=== PATIENT | female | born 1955 | race Caucasian/White ===

== ENCOUNTER 2016-04-28 19:38 | Emergency (ER) | payer OTHER ==
[~2016-04-28] VITALS: Ht 157.5 cm; Wt 49.9 kg
[~2016-04-28 19:38] MED LIST: ATOR40TA49 PO; HYDR-3535 PO; LISI-363 PO; MELO15 PO; MORP1CAP80 PO; PROP1TAB66 PO; RANI150 PO; ROBA750T3 PO; SYNT75TA PO; VENL75 PO
[2016-04-28 19:48] VITALS: PULSE 77; RESP 18; TEMP 99.8; O2SAT 96
[2016-04-28 20:52] VITALS: BP 205/103; PULSE 73; RESP 16; TEMP 99.8; O2SAT 97
[2016-04-28 21:50] VITALS: RESP 18; O2SAT 97
[2016-04-28] MEDS ORDERED: methylPREDNISolone SOD SUCC 125 MG/2 ML VIAL IVP ONE (22:15)
[2016-04-28] MEDS: RESP: ALBUTEROL 2.5 MG/IPRATROPIUM 0.5 MG NEB (SCH) INH (22:15)
--- NOTE | 2016-04-28 22:28 | PD ---
HPI Chief Complaint: Respiratory Symptoms Time Seen by Provider: 22:01 Travel History International Travel<30 days: No Contact w/Intl Traveler<30days: No Traveled to known affect area: No History of Present Illness HPI 60-year-old female with history of COPD presents for evaluation of cough, dyspnea, weight loss. Symptoms have been going on for last month. Cough is sometimes productive of greenish sputum. She has had subjective fevers and chills. She has been trying Mucinex without relief of symptoms. No hemoptysis. No history of DVT or PE. Chest pain with coughing. Dyspnea is at rest, worse with exertion. PFSH Past Medical History Arthritis: Yes Asthma: No Autoimmune Disease: No Blood Disorders: No Anxiety: Yes Depression: No Heart Rhythm Problems: No Cancer: No Cardiovascular Problems: Yes (HTN) High Cholesterol: Yes Chemotherapy: No Chest Pain: Yes Congestive Heart Failure: No COPD: No Cerebrovascular Accident: No Diabetes: No Diminished Hearing: No Diverticulitis: Yes Endocrine: No Gastrointestinal Disorders: Yes (GERD) GERD: Yes Glaucoma: No Genitourinary: No Headaches: Yes Hepatitis: No Hiatal Hernia: No Hypertension: Yes Immune Disorder: No Kidney Stones: No Musculoskeletal: Yes (CHRONIC BACK AND LEG PAIN) Neurologic: Yes (HEADACHES) Psychiatric: No Reproductive: No Respiratory: Yes (COUGHING) Immunizations Current: Yes Myocardial Infarction: No Radiation Therapy: No Renal Failure: No Seizures: No Sickle Cell Disease: No Sleep Apnea: No Thyroid Disease: Yes (HYPOTHYROIDISM) Triglycerides - High: Yes Ulcer: No Past Surgical History Abdominal Surgery: Yes (ADHESIONLYSIS) AICD: No Appendectomy: Yes Cardiac Surgery: No Cholecystectomy: Yes Ear Surgery: No Endocrine Surgery: No Eye Surgery: No Genitourinary Surgery: No Gynecologic Surgery: Yes (HYSTERECTOMY) Hysterectomy: Yes Joint Replacement: No Oral Surgery: No Pacemaker: No Thoracic Surgery: Yes (GALL BLADDER REMOVED 1995) Other Surgery: Yes (ADHESIONS on liver and stomach) Social History Alcohol Use: No Tobacco Use: Yes (1PPD) Substance Use: No Allergies-Medications (Allergen,Severity, Reaction): Coded Allergies: Seafood (Verified Allergy, Severe, Anaphylaxis, 04/28/16) Erythromycin (Verified Allergy, Intermediate, "facial swelling", 04/28/16) Penicillin (Verified Allergy, Intermediate, "facial swelling", 04/28/16) Dilaudid (Verified Adverse Reaction, Severe, Nausea/Vomiting, 04/28/16) headache, diarrhea Ibuprofen (Verified Adverse Reaction, Intermediate, NAUSEA, facial swelling, 04/28/16) Reported Meds & Prescriptions Reported Meds & Active Scripts Active Inderal (Propranolol HCl) 10 Mg Tab 10 Mg PO BID Zantac 150 Mg Tab (Ranitidine HCl) 150 Mg Tab 150 Mg PO BID Lisinopril 20 mg (Lisinopril) 20 Mg Tab 20 Mg PO BID Lipitor 40 Mg Tab (Atorvastatin Calcium) 40 Mg Tab 40 Mg PO DAILY Effexor 75 Mg Tab (Venlafaxine HCl) 75 Mg Tab 50 Mg PO BID Synthroid 75 mcg (Levothyroxine Sodium) 75 Mcg Tab 75 Mcg PO DAILY Reported Mobic 15 Mg Tab (Meloxicam) 15 Mg Tab 15 Mg PO BID Embeda 30-1.2 mg (Morphine-Naltrexone) 1 Cap Cap 1 Cap PO DAILY Lortab 10 mg/325 mg (Hydrocodone/Acetaminophen 10 mg/325 mg) 1 Tab 1 Tab PO Q6HR PRN Review of Systems Except as stated in HPI: all other systems reviewed are Neg Physical Exam Narrative GENERAL: Well-developed, thin, comfortable, no acute distress. SKIN: Warm and dry. No rash. HEAD: Atraumatic. Normocephalic. EYES: Pupils equal and round. No scleral icterus. No injection or drainage. ENT: Mucous membranes pink and moist. NECK: Trachea midline. No JVD. No nuchal rigidity. CARDIOVASCULAR: Regular rate and rhythm. RESPIRATORY: No accessory muscle use. Slight end expiratory wheezes bilaterally. No rales or rhonchi. Poor air movement bilaterally. Breath sounds equal bilaterally. GASTROINTESTINAL: Abdomen soft, non-tender, nondistended. Hepatic and splenic margins not palpable. MUSCULOSKELETAL: No obvious deformities. No clubbing. No cyanosis. No edema. Bilateral calves are supple, nontender. NEUROLOGICAL: Awake and alert. No obvious cranial nerve deficits. Motor grossly within normal limits. Normal speech. PSYCHIATRIC: Appropriate mood and affect; insight and judgment normal. Data Data Last Documented VS Vital Signs Date Time Temp Pulse Resp B/P Pulse Ox O2 Delivery O2 Flow Rate FiO2 04/28/16 21:59 77 18 98 Room Air 04/28/16 20:52 99.8 205/103 Orders Complete Blood Count With Diff (04/28/16 22:01) Comprehensive Metabolic Panel (04/28/16 22:01) B-Type Natriuretic Peptide (04/28/16 22:01) Act Partial Throm Time (Ptt) (04/28/16 22:01) Prothrombin Time / Inr (Pt) (04/28/16 22:01) Ckmb (Isoenzyme) Profile (04/28/16 22:01) Troponin I (04/28/16 22:01) Influenzae A/B Antigen (04/28/16 22:01) Blood Culture (04/28/16 22:) Iv Access Insert/Monitor (04/28/16 22:) Electrocardiogram (04/28/16 22:) Ecg Monitoring (04/28/16 22:) Oximetry (04/28/16 22:) Oxygen Administration (04/28/16 22:) Chest, Single Ap (04/28/16 22:01) Ct Pulmonary Angiogram (04/28/16 22:01) Sodium Chloride 0.9% Flush (Ns Flush) (04/28/16 22:15) Methylprednisolone So Succ Inj (Solumedr (04/28/16 22:15) Albuterol-Ipratropium Neb (Duoneb Neb) (04/28/16 22:15) Potassium Cl 40 Meq/30 Ml Liq (Kcl 40 Me (04/28/16 23:15) Acetaminophen (Tylenol) (04/28/16 23:15) Metoclopramide Inj (Reglan Inj) (04/28/16 23:15) Iohexol 350 Inj (Omnipaque 350 Inj) (04/28/16 23:11) Labs Laboratory Tests Test 04/28/16 22:10 White Blood Count 9.4 TH/MM3 Red Blood Count 4.70 MIL/MM3 Hemoglobin 15.3 GM/DL Hematocrit 44.2 % Mean Corpuscular Volume 93.9 FL Mean Corpuscular Hemoglobin 32.5 PG Mean Corpuscular Hemoglobin 34.7 % Concent Red Cell Distribution Width 12.9 % Platelet Count 307 TH/MM3 Mean Platelet Volume 8.2 FL Neutrophils (%) (Auto) 60.7 % Lymphocytes (%) (Auto) 31.3 % Monocytes (%) (Auto) 5.9 % Eosinophils (%) (Auto) 1.7 % Basophils (%) (Auto) 0.4 % Neutrophils # (Auto) 5.7 TH/MM3 Lymphocytes # (Auto) 2.9 TH/MM3 Monocytes # (Auto) 0.6 TH/MM3 Eosinophils # (Auto) 0.2 TH/MM3 Basophils # (Auto) 0.0 TH/MM3 CBC Comment DIFF FINAL Differential Comment Prothrombin Time 10.1 SEC Prothromb Time International 0.9 RATIO Ratio Activated Partial 27.1 SEC Thromboplast Time Sodium Level 134 MEQ/L Potassium Level 3.2 MEQ/L Chloride Level 96 MEQ/L Carbon Dioxide Level 32.4 MEQ/L Anion Gap 6 MEQ/L Blood Urea Nitrogen 6 MG/DL Creatinine 0.52 MG/DL Estimat Glomerular Filtration 121 ML/MIN Rate Random Glucose 93 MG/DL Calcium Level 9.7 MG/DL Total Bilirubin 0.4 MG/DL Aspartate Amino Transf 10 U/L (AST/SGOT) Alanine Aminotransferase 20 U/L (ALT/SGPT) Alkaline Phosphatase 91 U/L Total Creatine Kinase 78 U/L Troponin I LESS THAN 0.02 NG/ML B-Type Natriuretic Peptide 11 PG/ML Total Protein 7.2 GM/DL Albumin 4.0 GM/DL [facility] Medical Decision Making Medical Screen Exam Complete: Yes Emergency Medical Condition: Yes Medical Record Reviewed: Yes Interpretation(s) EKG: Sinus, rate 66, normal axis, normal intervals, no acute ischemic abnormality. Differential Diagnosis COPD exacerbation, pneumonia, influenza, PE, ACS, pneumothorax, bronchitis Narrative Course Vital signs show heart rate 73, blood pressure 205/103, pulse ox 97% on room air , oral temp of 99.8F. CBC is unremarkable. CMP is remarkable for potassium 3.2, otherwise unremarkable. Potassium replaced orally. BNP is 11. Cardiac enzymes are negative. Influenza is negative. Chest x-ray shows no acute disease. CT pulmonary angiogram: CONCLUSION: No evidence of pulmonary embolism Small right upper lobe nodular lung density should be followed. The patient was made aware of all findings and was given a copy of the CT pulmonary angiogram report. She reports improvement in respiratory symptoms after 3 DuoNeb treatments and IV Solu-Medrol. Wheezes have resolved. After receiving treatments patient was complaining of a headache. She was given Tylenol and Reglan. I do not believe she has meningitis or encephalitis. Headache is slight. I do not believe that this is a subarachnoid hemorrhage. I believe that the patient is suffering from COPD exacerbation/bronchitis. She is resting comfortably and speaking in full sentences. No respiratory distress. No retractions. She is stable for discharge home with outpatient follow-up with her primary care physician this week. Given duration of cough, I will start her on Levaquin. She was informed on when to return to the emergency department. She verbalizes understanding and agreement with plan. Diagnosis Primary Impression: Bronchitis Additional Impression: Lung nodule Referrals: Primary Care Physician 3 days Additional Instructions: Follow-up with your primary care physician this week. Take medications as prescribed. Return to the emergency room if worsening symptoms or any other concerns. Scripts Albuterol 18 GM Inh (Ventolin Hfa 18 GM Inh)90 Mcg/Act Aer1 Puff INH Q4H PRN ( SHORTNESS OF BREATH) #1 INHALER Ref 0 Prov:Hilario Frank MD 04/28/16 Prednisone 50 Mg Tab50 Mg PO DAILY 5 Days Ref 0 Prov:Hilario Frank MD 04/28/16 Levofloxacin (Levaquin)500 Mg [id number] Mg PO DAILY 7 Days Ref 0 Prov:Hilario Frank MD 04/28/16 Disposition: 01 DISCHARGE HOME Condition: Stable Hilario Frank MD Apr 28, 2016 22:28
[2016-04-28 22:36] LABS: AUTOMATED NEUTROPHIL # 5.7 TH/MM3 (1.8-7.7); BASOPHIL % 0.4 % (0.0-2.0); EOSINOPHIL # 0.2 TH/MM3 (0-0.4); EOSINOPHIL % 1.7 % (0.0-4.0); HEMATOCRIT 44.2 % (35.0-46.0); HEMO FLAGS DIFF FINAL; LYMPH % 31.3 % (9.0-44.0); LYMPHOCYTE # 2.9 TH/MM3 (1.0-4.8); MEAN CELL VOLUME 93.9 FL (80.0-100.0); MEAN CORPUSCULAR HEMOGLOBIN 32.5 PG (27.0-34.0); MEAN CORPUSCULAR HGB CONC 34.7 % (32.0-36.0); MONO % 5.9 % (0.0-8.0); NEUT % 60.7 % (16.0-70.0); PLATELET COUNT 307 TH/MM3 (150-450); RED CELL DISTRIBUTION WIDTH 12.9 % (11.6-17.2); WHITE BLOOD COUNT 9.4 TH/MM3 (4.0-11.0)
[2016-04-28] MEDS: SODIUM CHLORIDE 0.9% FLUSH 5 ML FLUSH IVF PRN ×2 (22:38→23:47)
[2016-04-28 22:45] LABS: CHLORIDE 96 MEQ/L (98-107); POTASSIUM 3.2 MEQ/L (3.5-5.1); SODIUM (NA) 134 MEQ/L (136-145)
[2016-04-28 22:49] LABS: ANION GAP 6 MEQ/L (5-15); BICARBONATE 32.4 MEQ/L (21.0-32.0); BLOOD UREA NITROGEN 6 MG/DL (7-18)
[2016-04-28 22:51] LABS: APTT (PATIENT) 27.1 SEC (24.3-30.1); INTERNATIONAL NORMALIZED RATIO 0.9 RATIO; PROTHROMBIN TIME - PATIENT 10.1 SEC (9.8-11.6)
[2016-04-28 22:52] LABS: ALT (GPT) 20 U/L (10-53); AST (GOT) 10 U/L (15-37); GLOMERULAR FILTRATION RATE 121 ML/MIN (>89)
[2016-04-28 22:54] LABS: TOTAL BILIRUBIN ADULT 0.4 MG/DL (0.2-1.0)
[2016-04-28 22:55] LABS: ALKALINE PHOSPHATASE 91 U/L (45-117)
--- NOTE | 2016-04-28 22:56 | RADHPO ---
EXAM DATE/TIME: 04/28/2016 22:51 [facility] COMPARISON: CHEST SINGLE AP, July 03, 2013, 21:57. INDICATIONS : Shortness of breath for 1 month MEDICAL HISTORY : None. SURGICAL HISTORY : None. ENCOUNTER: Initial ACUITY: 1 month PAIN SCORE: 3/10 LOCATION: Center of chest FINDINGS: A single view of the chest demonstrates the lungs to be symmetrically aerated without evidence of mas s, infiltrate or effusion. The cardiomediastinal contours are unremarkable. Osseous structures are intact. CONCLUSION: No acute disease. Shaka Henning MD on April 28, 2016 at 22:55 Board Certified Radiologist. This report was verified electronically.
[2016-04-28 22:58] LABS: CREATINE KINASE 78 U/L (26-192)
[2016-04-28] MEDS ORDERED: IOHEXOL 350 MG/ML 10 ML VIAL (for RAD DIAG) IV ONE (23:11)
[2016-04-28] MEDS ORDERED: POTASSIUM CL 40 MEQ/30 ML LIQ UDC PO ONE (23:15)
[2016-04-28] MEDS ORDERED: METOCLOPRAMIDE HCL 10 MG/2 ML VIAL IV PUSH ONE (23:15)
[2016-04-28] MEDS ORDERED: ACETAMINOPHEN 325 MG TAB PO ONE (23:15)
--- NOTE | 2016-04-28 23:45 | RADHPO ---
EXAM DATE/TIME: 04/28/2016 23:08 [facility] COMPARISON: No previous studies available for comparison. INDICATIONS : Cold symptoms with shortness of breath and weakness. IV CONTRAST: 60 cc Omnipaque 350 (iohexol) IV RADIATION DOSE: 6.25 CTDIvol (mGy) MEDICAL HISTORY : Hypertension. SURGICAL HISTORY : None. ENCOUNTER: Initial ACUITY: 2 weeks PAIN SCALE: 0/10 LOCATION: chest TECHNIQUE: Volumetric scanning of the chest was performed using a pulmonary embolism protocol MIP images were re constructed. Using automated exposure control and adjustment of the mA and/or kV according to patien t size, radiation dose was kept as low as reasonably achievable to obtain optimal diagnostic quality images. FINDINGS: PULMONARY ARTERIES: No filling defects are seen in the pulmonary arteries through the segmental level. LUNGS: There is a slightly less than 1 cm sub-solid nodular density in the lateral subpleural region of the right upper lobe. PLEURAE: There is no pleural thickening or pleural effusion. MEDIASTINUM: There is good visualization of the great vessels of the middle mediastinum. Incidental origin of the left vertebral artery from the aortic arch. No evidence of mediastinal or hilar adenopathy/mass. MUSCULOSKELETAL: Within normal limits for patient age. MISCELLANEOUS: The visualized upper abdominal organs demonstrate no acute abnormality. CONCLUSION: No evidence of pulmonary embolism Small right upper lobe nodular lung density should be followed. Rico Finch MD on April 28, 2016 at 23:37 Board Certified Radiologist. This report was verified electronically.
[2016-04-28] MEDS ORDERED: LEVA500T PO (23:55)
[2016-04-28] MEDS ORDERED: PRED50 PO (23:55)
[2016-04-28] MEDS ORDERED: VENTAER INH (23:55)
[2016-04-29 00:05] VITALS: BP 152/82; PULSE 88; RESP 18; O2SAT 95
[2016-04-29] MEDS ORDERED: LEVOFLOXACIN 500 MG TAB PO ONE (00:15)
[2016-04-29] MEDS ORDERED: ALBUAER3 INH (03:27)
[2016-04-29] MEDS ORDERED: LISI-515 PO (03:27)
[2016-04-29] MEDS ORDERED: HYDR-3583 PO (03:27)
[2016-04-29] MEDS ORDERED: VENL75TA PO (03:27)
[2016-04-29] MEDS ORDERED: RANI150T PO (03:27)
[2016-04-29] MEDS ORDERED: LOVA10TA PO (03:27)
[2016-04-29] MEDS ORDERED: LYRI50CA PO (03:27)
[2016-04-29] MEDS ORDERED: BACL10TA PO (03:27)
[2016-04-29] MEDS ORDERED: METO10TA PO ×2 (03:27)
[2016-04-29] MEDS ORDERED: MOBI15TA PO (03:27)
[2016-04-29] MEDS ORDERED: VITA500T PO (03:27)
[2016-04-29] MEDS ORDERED: LEVO75TA3 PO (03:27)
[2016-04-29] MEDS ORDERED: PROP10TA6 PO (03:27)
[2016-04-29] MEDS ORDERED: VENL100T PO (03:27)
[2016-04-29] MEDS ORDERED: LORA1TAB12 PO (03:27)
[2016-04-29] MEDS ORDERED: POTA-163 PO (03:27)
[2016-04-29] MEDS ORDERED: CENTTAB PO (03:27)
[2016-04-29] MEDS ORDERED: LEVOFLOXACIN 500 MG TAB PO SCH (09:00)
--- NOTE | 2016-04-29 21:03 | EKG ---
Date Performed: 04/28/2016 Time Performed: 22:42:48 PTAGE: 60 years EKG: Sinus rhythm . Normal ECG PREVIOUS TRACING : 08/15/2013 20.16 DOCTOR: Blaze Rock Interpretating Date/Time 04/29/2016 21:00:47
== END 2016-04-29 00:47 | disposition home or self-care (01) ==
LOC: PHED 19:38
DX: J40 Bronchitis, not specified as acute or chronic (principal); R91.1 Solitary pulmonary nodule; I10 Essential (primary) hypertension; E78.00 Pure hypercholesterolemia, unspecified; E03.9 Hypothyroidism, unspecified; F17.210 Nicotine dependence, cigarettes, uncomplicated
CPT/HCPCS: 71010; 71275; 80053; 82550; 83880; 84484; 85025; 85610; 85730; 87040; 87804; 93005; 94640; 94664; 96374; 96375; 99285; J2765; J2930; Q9967

== ENCOUNTER 2016-09-06 20:31 | Emergency (ER) | payer OTHER ==
[~2016-09-06] VITALS: Ht 157.5 cm; Wt 48.1 kg
[~2016-09-06 20:31] MED LIST changes: +ALBUAER3 INH; -ATOR40TA49 PO; +BACL10TA PO; +CENTTAB PO; -HYDR-3535 PO; +HYDR-3583 PO; +LEVA500T PO; +LEVO75TA3 PO; -LISI-363 PO; +LISI-515 PO; +LORA1TAB12 PO; +LOVA10TA PO; +LYRI50CA PO; -MELO15 PO; +METO10TA PO; +MOBI15TA PO; -MORP1CAP80 PO; +POTA-163 PO; +PRED50 PO; +PROP10TA6 PO; -PROP1TAB66 PO; -RANI150 PO; +RANI150T PO; -ROBA750T3 PO; -SYNT75TA PO; +VENL100T PO; -VENL75 PO; +VENL75TA PO; +VITA500T PO
[2016-09-06 20:40] VITALS: BP 189/106; PULSE 82; RESP 12; TEMP 98.7; O2SAT 96
[2016-09-06] MEDS ORDERED: ROBA750T PO (21:03)
[2016-09-06] MEDS ORDERED: OMEP40CA2 PO (21:03)
[2016-09-06] MEDS ORDERED: LYRI75CA PO (21:03)
[2016-09-06] MEDS ORDERED: ALBUAER3 INH (21:03)
[2016-09-06] MEDS ORDERED: REGL10TA5 PO (21:03)
[2016-09-06] MEDS ORDERED: EFFE150C PO (21:03)
[2016-09-06] MEDS ORDERED: CYCL5TAB PO (21:11)
--- NOTE | 2016-09-06 21:12 | PD ---
HPI Chief Complaint: Back/ Neck Pain or Injury Time Seen by Provider: 20:50 Travel History International Travel<30 days: No Contact w/Intl Traveler<30days: No History of Present Illness HPI 60-year-old female presents emergency department for chief complaint of low back pain and bilateral hip pain. She reports this pain is ongoing for several months. She denies injury. She reports the pain as intermittent, radiates down the right leg to the level of the knee no alleviating factors. She denies injury. She denies incontinence, fever, difficulty in voiding, paresthesia of the extremities. PFSH Past Medical History Arthritis: Yes Asthma: No Autoimmune Disease: No Blood Disorders: No Anxiety: Yes Depression: No Heart Rhythm Problems: No Cancer: No Cardiovascular Problems: Yes (HTN) High Cholesterol: Yes Chemotherapy: No Chest Pain: Yes Congestive Heart Failure: No COPD: No Cerebrovascular Accident: No Diabetes: No Diminished Hearing: No Diverticulitis: Yes Endocrine: No Gastrointestinal Disorders: Yes (GERD) GERD: Yes Glaucoma: No Genitourinary: No Headaches: Yes Hepatitis: No Hiatal Hernia: No Hypertension: Yes Immune Disorder: No Kidney Stones: No Musculoskeletal: Yes (CHRONIC BACK AND LEG PAIN, L ROTATOR CUFF INJURY) Neurologic: Yes (HEADACHES) Psychiatric: No Reproductive: No Respiratory: Yes (COUGHING) Immunizations Current: Yes Myocardial Infarction: No Radiation Therapy: No Renal Failure: No Seizures: No Sickle Cell Disease: No Sleep Apnea: No Thyroid Disease: Yes (HYPOTHYROIDISM) Triglycerides - High: Yes Ulcer: No : 0 Past Surgical History Abdominal Surgery: Yes (ADHESIONLYSIS) AICD: No Appendectomy: Yes Cardiac Surgery: No Cholecystectomy: Yes Ear Surgery: No Endocrine Surgery: No Eye Surgery: No Genitourinary Surgery: No Gynecologic Surgery: Yes (HYSTERECTOMY) Hysterectomy: Yes Joint Replacement: No Oral Surgery: No Pacemaker: No Thoracic Surgery: Yes (GALL BLADDER REMOVED 1995) Other Surgery: Yes (ADHESIONS on liver and stomach) Social History Alcohol Use: No Tobacco Use: Yes (1PPD) Substance Use: No Allergies-Medications (Allergen,Severity, Reaction): Coded Allergies: Seafood (Verified Allergy, Severe, Anaphylaxis, 04/28/16) Erythromycin (Verified Allergy, Intermediate, "facial swelling", 04/28/16) Penicillin (Verified Allergy, Intermediate, "facial swelling", 04/28/16) Dilaudid (Verified Adverse Reaction, Severe, Nausea/Vomiting, 04/28/16) headache, diarrhea Ibuprofen (Verified Adverse Reaction, Intermediate, NAUSEA, facial swelling, 04/28/16) Reported Meds & Prescriptions Reported Meds & Active Scripts Active Prednisone 50 Mg Tab 50 Mg PO DAILY 5 Days Levaquin (Levofloxacin) 500 Mg Tab 500 Mg PO DAILY 7 Days Reported Proair Hfa 8.5 GM Inh (Albuterol Sulfate) 90 Mcg/Act Aer 1 Puff INH BID 108 mcg/actuation Vitamin C (Ascorbic Acid) 500 Mg Tab 500 Mg PO DAILY Centrum Silver (Multiple Vitamins W/ Minerals) 1 Tab 1 Tab PO DAILY Lovastatin 10 Mg Tab 10 Mg PO DAILY Potassium Chloride ER (Potassium Chloride) 20 Meq Tab 20 Meq PO BID Ranitidine (Ranitidine HCl) 150 Mg Tab 150 Mg PO BID Levothyroxine (Levothyroxine Sodium) 75 Mcg Tab 75 Mcg PO DAILY Lisinopril 20 Mg Tab 20 Mg PO BID Propranolol (Propranolol HCl) 10 Mg Tab 10 Mg PO Q12HR Metoclopramide (Metoclopramide HCl) 10 Mg Tab 10 Mg PO BID Mobic (Meloxicam) 15 Mg Tab 15 Mg PO BID Baclofen 10 Mg Tab 10 Mg PO BID Lorazepam 1 Mg Tab 1 Mg PO BID PRN Effexor (Venlafaxine HCl) 100 Mg Tab 100 Mg PO DAILY Effexor (Venlafaxine HCl) 75 Mg Tab 75 Mg PO DAILY Lyrica (Pregabalin) 50 Mg Cap 50 Mg PO TID Hydrocodone-Acetaminophen 10-325 mg Tab 1 Tab PO Q6H PRN Review of Systems Except as stated in HPI: all other systems reviewed are Neg Physical Exam Narrative GENERAL: Alert, well-appearing female. SKIN: Focused skin assessment warm/dry. No rashes HEAD: Atraumatic. Normocephalic. EYES: Pupils equal and round. No scleral icterus. No injection or drainage. ENT: No nasal bleeding or discharge. Mucous membranes pink and moist. NECK: Trachea midline. No JVD. CARDIOVASCULAR: Regular rate and rhythm. No murmur appreciated. RESPIRATORY: No accessory muscle use. Clear to auscultation. Breath sounds equal bilaterally. GASTROINTESTINAL: Abdomen soft, non-tender, nondistended. Hepatic and splenic margins not palpable. MUSCULOSKELETAL: No obvious deformities. No clubbing. No cyanosis. No edema. Normal strength and sensation of the lower extremities. Normal dorsi and plantar flexion. BACK: Generalized low back pain. No point tenderness over the spine. No CVA tenderness. NEUROLOGICAL: Awake and alert. No obvious cranial nerve deficits. Motor grossly within normal limits. Normal speech. PSYCHIATRIC: Appropriate mood and affect; insight and judgment normal. Data Data Last Documented VS Vital Signs Date Time Temp Pulse Resp B/P Pulse Ox O2 Delivery O2 Flow Rate FiO2 09/06/16 20:40 98.7 82 12 189/106 96 MDM Medical Decision Making Medical Screen Exam Complete: Yes Emergency Medical Condition: Yes Differential Diagnosis Lumbar strain, acute on chronic back pain, arthralgia, sciatica Narrative Course 60-year-old female presents to the emergency department worsening chronic low back pain. She denies injury. She denies fever, incontinence, numbness or tingling in the lower extremities. She does report some right sided buttocks pain that radiates down to the back of her knee. She has a negative straight leg raise. She has no midline spine tenderness. Patient has multiple allergies. She will be given a shot of Decadron and a muscle relaxer. She is instructed to follow up with her primary care provider. She agrees to this plan Diagnosis Primary Impression: Low back pain Qualified Code: M54.41 - Low back pain with right-sided sciatica, unspecified back pain laterality, unspecified chronicity Referrals: Primary Care Physician Scripts Cyclobenzaprine (Flexeril)5 Mg Tab5 Mg PO TID #12 TAB Ref 0 Prov:Vonnie Flores 09/06/16 Disposition: 01 DISCHARGE HOME Condition: Stable Vonnie Flores September 06, 2016 21:11
[2016-09-06] MEDS ORDERED: DEXAMETHASONE SOD PHOS 4 MG/ML VIAL IM ONE (21:15)
[2016-09-06] MEDS ORDERED: CYCLOBENZAPRINE HCL 10 MG TAB PO ONE (21:15)
== END 2016-09-06 21:28 | disposition home or self-care (01) ==
LOC: PHEFT 20:31
DX: M54.5 Low back pain (principal); M19.90 Unspecified osteoarthritis, unspecified site; F41.9 Anxiety disorder, unspecified; I10 Essential (primary) hypertension; K21.9 Gastro-esophageal reflux disease without esophagitis; E03.9 Hypothyroidism, unspecified; F17.200 Nicotine dependence, unspecified, uncomplicated; Z79.899 Other long term (current) drug therapy; Z88.0 Allergy status to penicillin
CPT/HCPCS: 96372; 99284; J1100

== ENCOUNTER → 2016-09-08 | Outpatient (CLI) | payer OTHER ==
[~2016-09-08] MED LIST changes: -BACL10TA PO; -CENTTAB PO; +CYCL5TAB PO; +EFFE150C PO; -LEVA500T PO; -LORA1TAB12 PO; -LYRI50CA PO; +LYRI75CA PO; -METO10TA PO; +OMEP40CA2 PO; -POTA-163 PO; -PRED50 PO; -RANI150T PO; +REGL10TA5 PO; +ROBA750T PO; -VENL100T PO; -VENL75TA PO; -VITA500T PO
--- NOTE | 2016-09-08 17:09 | RADRPT ---
EXAM DATE/TIME: 09/08/2016 15:34 [facility] COMPARISON: No previous studies available for comparison. INDICATIONS : Bilateral hip pain with no injury, possible spondylosis. MEDICAL HISTORY : None. SURGICAL HISTORY : None. ENCOUNTER: Initial ACUITY: 1 year PAIN SCORE: 8/10 LOCATION: Bilateral hips. FINDINGS: 4 views bilateral hips.. Bone alignment within normal limits. No evidence of fracture. No joint narr owing. CONCLUSION: Hips within normal limits. David Gold MD on September 08, 2016 at 17:06 Board Certified Radiologist. This report was verified electronically.
--- NOTE | 2016-09-08 18:37 | RADRPT ---
EXAM DATE/TIME: 09/08/2016 15:38 [place] Corrected on: September 09, 2016; added ICD10 data in place of [EFORM] [facility] COMPARISON: No previous studies available for comparison. INDICATIONS: Bilateral SI joint and back pain with no injury, possible spondylosis. MEDICAL HISTORY: None. SURGICAL HISTORY: None ENCOUNTER: Initial ACUITY: 1 year PAIN SCORE: 9/10 LOCATION: Bilateral SI joints FINDINGS: 3 views of the sacroiliac joints. Bone alignment within normal limits. No evidence of fracture. Sacr oiliac joints within normal limits. CONCLUSION: Sacroiliac joints within normal limits. David Gold MD on September 08, 2016 at 18:34 Board Certified Radiologist. This report was verified electronically. Board Certified Radiologist. This report was verified electronically.
== END ==
LOC: HRAD 15:08
DX: M47.817 Spondylosis without myelopathy or radiculopathy, lumbosacral region (principal)
CPT/HCPCS: 72202; 73521

== ENCOUNTER 2017-02-19 19:18 | Emergency (ER) | payer OTHER ==
[~2017-02-19] VITALS: Ht 157.5 cm; Wt 48.0 kg
[2017-02-19 19:43] VITALS: BP 190/105; PULSE 80; RESP 16; TEMP 98.7; O2SAT 97
[2017-02-19] MEDS ORDERED: LISI40TA PO (21:39)
[2017-02-19] MEDS ORDERED: PARO10TA2 PO (21:40)
[2017-02-19] MEDS ORDERED: ZANT150T2 PO (21:40)
[2017-02-19 21:52] VITALS: BP 157/102; PULSE 76; RESP 16; O2SAT 97
[2017-02-19] MEDS ORDERED: ONDANSETRON HCL 4 MG/2 ML VIAL IVP ONE (22:15)
[2017-02-19] MEDS ORDERED: SODIUM CHLORIDE 0.9% FLUSH 10 ML FLUSH IV FLUSH PRN (22:15)
[2017-02-19 22:45] LABS: BLOOD, URINE SMALL (NEG); GLUCOSE,URINE NEG (NEG); KETONE, URINE TRACE mg/dL (NEG); NITRITE,URINE NEG (NEG); PH, URINE 6.5 (5.0-8.5)
[2017-02-19 22:45] LABS: AUTOMATED NEUTROPHIL # 5.5 TH/MM3 (1.8-7.7); BASOPHIL # 0.1 TH/MM3 (0-0.2); BASOPHIL % 0.6 % (0.0-2.0); EOSINOPHIL # 0.2 TH/MM3 (0-0.4); EOSINOPHIL % 2.2 % (0.0-4.0); HEMATOCRIT 44.8 % (35.0-46.0); HEMO FLAGS DIFF FINAL; LYMPH % 35.8 % (9.0-44.0); LYMPHOCYTE # 3.5 TH/MM3 (1.0-4.8); MEAN CELL VOLUME 94.1 FL (80.0-100.0); MEAN CORPUSCULAR HEMOGLOBIN 32.4 PG (27.0-34.0); MEAN CORPUSCULAR HGB CONC 34.4 % (32.0-36.0); MONO % 5.5 % (0.0-8.0); NEUT % 55.9 % (16.0-70.0); PLATELET COUNT 295 TH/MM3 (150-450); RED BLOOD COUNT 4.76 MIL/MM3 (4.00-5.30); RED CELL DISTRIBUTION WIDTH 13.4 % (11.6-17.2); WHITE BLOOD COUNT 9.8 TH/MM3 (4.0-11.0)
[2017-02-19 22:47] LABS: URINE COLOR STRAW (YELLW/STRAW)
[2017-02-19 22:50] VITALS: O2SAT 96
[2017-02-19 22:52] LABS: COMMENT (UR) CULT NOT INDICATED; CULTURE IF INDICATED CULT NOT INDICATED; SQUAMOUS EPITHELIAL CELL URINE 0-5 /hpf (0-5); WBC, URINE 0-2 /hpf (0-5)
[2017-02-19 22:53] LABS: CHLORIDE 105 MEQ/L (98-107); POTASSIUM 3.4 MEQ/L (3.5-5.1); SODIUM (NA) 138 MEQ/L (136-145)
[2017-02-19 22:58] LABS: ANION GAP 7 MEQ/L (5-15); BICARBONATE 25.8 MEQ/L (21.0-32.0); BLOOD UREA NITROGEN 7 MG/DL (7-18); MAGNESIUM 2.3 MG/DL (1.5-2.5)
[2017-02-19 23:00] VITALS: BP_SYST 140; BP_SYST 149; BP_SYST 154; BP_DIAS 87; BP_DIAS 90; BP_DIAS 92
[2017-02-19 23:01] LABS: ALT (GPT) 22 U/L (10-53); AST (GOT) 14 U/L (15-37); GLOMERULAR FILTRATION RATE 150 ML/MIN (>89)
[2017-02-19 23:02] LABS: TOTAL BILIRUBIN ADULT 0.4 MG/DL (0.2-1.0)
[2017-02-19 23:03] LABS: ALKALINE PHOSPHATASE 118 U/L (45-117)
--- NOTE | 2017-02-19 23:06 | RADRPT ---
EXAM DATE/TIME: 02/19/2017 22:44 [facility] COMPARISON: CHEST SINGLE AP, April 28, 2016, 22:51. INDICATIONS : Chest pain, vomiting. MEDICAL HISTORY : None. SURGICAL HISTORY : None. ENCOUNTER: Initial ACUITY: 1 day PAIN SCORE: 0/10 LOCATION: Bilateral chest FINDINGS: The cardiac silhouette is enlarged in transverse diameter. The lungs are free of acute parenchymal op acity. No effusions are identified. The aortic knob is prominent with tortuosity of the descending th oracic aorta. CONCLUSION: 1. No acute cardiopulmonary disease. Saud Santiago MD on February 19, 2017 at 23:04 Board Certified Radiologist. This report was verified electronically.
--- NOTE | 2017-02-19 23:37 | PD ---
HPI Chief Complaint: General Weakness Time Seen by Provider: 22:12 Travel History International Travel<30 days: No Contact w/Intl Traveler<30days: No Traveled to known affect area: No History of Present Illness HPI [age]year-old female presents to the emergency department complaining of 1 year of not feeling well with nausea. Patient states she was just seen by her primary care provider on Tuesday given prescription to have blood work performed. Patient has not yet gone to the lab to have her blood work performed. Patient states she decided to come to the emergency room because she still having nausea and felt that she should be seen. No fever no chills no vomiting no diarrhea no dysuria no frequency no urgency. Patient has some mild epigastric tenderness and discomfort she states that is also been present for the past year. 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 Patient states that she has had no chest pain or shortness of breath or sweats. Patient states that she's had no recent injury or fall. Patient denies hematemesis coffee-ground emesis melena hematochezia. Patient states she has had weight loss she normally weighs 116-220 pounds and more recently she weighs 108 pounds. Patient states she's also shared with us with her primary care provider and that's when she is having lab work done. Patient does have hypothyroidism and does take thyroid medication. Patient also takes medication for hypertension and dyslipidemia. Patient is also taking multiple medications for chronic pain to her low back and is followed by pain management provider. Patient denies other concerns or complaints. PFSH Past Medical History Narrative Medical Arthritis hypertension dyslipidemia hypothyroidism appendectomy cholecystectomy hysterectomy tobacco use nursing notes reviewed Arthritis: Yes Asthma: No Autoimmune Disease: No Blood Disorders: No Anxiety: Yes Depression: No Heart Rhythm Problems: No Cancer: No Cardiovascular Problems: Yes (HTN) High Cholesterol: Yes Chemotherapy: No Chest Pain: Yes Congestive Heart Failure: No COPD: No Cerebrovascular Accident: No Diabetes: No Diminished Hearing: No Diverticulitis: Yes Endocrine: No Gastrointestinal Disorders: Yes (GERD) GERD: Yes Glaucoma: No Genitourinary: No Headaches: Yes Hepatitis: No Hiatal Hernia: No Hypertension: Yes Immune Disorder: No Kidney Stones: No Musculoskeletal: Yes (CHRONIC BACK AND LEG PAIN, L ROTATOR CUFF INJURY) Neurologic: Yes (HEADACHES) Psychiatric: No Reproductive: No Respiratory: Yes (COUGHING) Immunizations Current: Yes Myocardial Infarction: No Radiation Therapy: No Renal Failure: No Seizures: No Sickle Cell Disease: No Sleep Apnea: No Thyroid Disease: Yes (HYPOTHYROIDISM) Triglycerides - High: Yes Ulcer: No Tetanus Vaccination: < 5 Years Influenza Vaccination: No ?: Not : 0 Past Surgical History Abdominal Surgery: Yes (ADHESIONLYSIS) AICD: No Appendectomy: Yes Cardiac Surgery: No Cholecystectomy: Yes Ear Surgery: No Endocrine Surgery: No Eye Surgery: No Genitourinary Surgery: No Gynecologic Surgery: Yes (HYSTERECTOMY) Hysterectomy: Yes Joint Replacement: No Oral Surgery: No Pacemaker: No Thoracic Surgery: Yes (GALL BLADDER REMOVED 1995) Other Surgery: Yes (ADHESIONS on liver and stomach) Family History Family Myocardial Infarction: Yes Social History Alcohol Use: No Tobacco Use: Yes (1PPD) Substance Use: No Allergies-Medications (Allergen,Severity, Reaction): Coded Allergies: Fish Containing Products (Unverified Allergy, Severe, Anaphylaxis, ) erythromycin base (Unverified Allergy, Intermediate, "facial swelling", ) penicillin G (Unverified Allergy, Intermediate, "facial swelling", ) hydromorphone (Unverified Adverse Reaction, Severe, Nausea/Vomiting, 02/19) headache, diarrhea ibuprofen (Unverified Adverse Reaction, Intermediate, NAUSEA, facial swelling, 02/19/17) Reported Meds & Prescriptions Reported Meds & Active Scripts Active Zofran Odt (Ondansetron Odt) 4 Mg Tab 4 Mg SL Q6HR PRN Flexeril (Cyclobenzaprine HCl) 5 Mg Tab 5 Mg PO TID Reported Zantac (Ranitidine HCl) 150 Mg Tab 150 Mg PO BID Paroxetine (Paroxetine HCl) 10 Mg Tab 10 Mg PO DAILY Lisinopril 40 Mg Tab 40 Mg PO DAILY Proair Hfa 8.5 GM Inh (Albuterol Sulfate) 90 Mcg/Act Aer 1 Puff INH Q4H PRN 108 mcg/actuation Lyrica (Pregabalin) 75 Mg Cap 75 Mg PO DAILY Lovastatin 10 Mg Tab 10 Mg PO DAILY Levothyroxine (Levothyroxine Sodium) 75 Mcg Tab 75 Mcg PO DAILY Propranolol (Propranolol HCl) 10 Mg Tab 10 Mg PO Q12HR Mobic (Meloxicam) 15 Mg Tab 15 Mg PO BID Hydrocodone-Acetaminophen 10-325 mg Tab 1 Tab PO Q6H PRN Review of Systems Except as stated in HPI: all other systems reviewed are Neg Physical Exam Narrative GENERAL: Well-developed well-nourished female in no acute distress no respiratory distress; GCS 15 SKIN: Warm and dry. HEAD: Normocephalic. EYES: No scleral icterus. No injection or drainage. NECK: Supple, trachea midline. No JVD or lymphadenopathy. CARDIOVASCULAR: Regular rate and rhythm without murmurs, gallops, or rubs. RESPIRATORY: Breath sounds equal bilaterally. No accessory muscle use. GASTROINTESTINAL: Abdomen soft, non-tender, nondistended. MUSCULOSKELETAL: No cyanosis, or edema. BACK: Nontender without obvious deformity. No CVA tenderness. Data Data Last Documented VS Vital Signs Date Time Temp Pulse Resp B/P (MAP) Pulse Ox O2 Delivery O2 Flow Rate FiO2 02/20/17 00:29 95 16 128/88 (101) 97 02/19/17 22:50 Room Air 02/19/17 19:43 98.7 Orders Orders Complete Blood Count With Diff (02/19/17 22:12) Comprehensive Metabolic Panel (02/19/17 22:12) Lipase (02/19/17 22:12) Lactic Acid (02/19/17 22:12) Urinalysis - C+S If Indicated (02/19/17 22:12) Iv Access Insert/Monitor (02/19/17 22:12) Ecg Monitoring (02/19/17 22:12) Oximetry (02/19/17 22:12) Ondansetron Inj (Zofran Inj) (02/19/17 22:15) Sodium Chloride 0.9% Flush (Ns Flush) (02/19/17 22:15) Electrocardiogram (02/19/17 22:12) Chest, Single Ap (02/19/17 22:12) Orthostatic Vital Signs (02/19/17 22:12) Thyroid Stimulating Hormone (02/19/17 22:12) Magnesium (Mg) (02/19/17 22:12) Calcium Carbonate Chew (Tums Chew) (02/19/17 23:45) Labs Laboratory Tests Test 02/19/17 22:20 02/19/17 22:30 Urine Color STRAW Urine Turbidity CLEAR Urine pH 6.5 Urine Specific [place] 1.005 Urine Protein NEG mg/dL Urine Glucose (UA) NEG mg/dL Urine Ketones TRACE mg/dL Urine Occult Blood SMALL Urine Nitrite NEG Urine Bilirubin NEG Urine Leukocyte Esterase NEG Urine RBC 3-5 /hpf Urine WBC 0-2 /hpf Urine Squamous Epithelial Cells 0-5 /hpf Urine Bacteria NONE /hpf Microscopic Urinalysis Comment CULT NOT INDICATED White Blood Count 9.8 TH/MM3 Red Blood Count 4.76 MIL/MM3 Hemoglobin 15.4 GM/DL Hematocrit 44.8 % Mean Corpuscular Volume 94.1 FL Mean Corpuscular Hemoglobin 32.4 PG Mean Corpuscular Hemoglobin Concent 34.4 % Red Cell Distribution Width 13.4 % Platelet Count 295 TH/MM3 Mean Platelet Volume 8.2 FL Neutrophils (%) (Auto) 55.9 % Lymphocytes (%) (Auto) 35.8 % Monocytes (%) (Auto) 5.5 % Eosinophils (%) (Auto) 2.2 % Basophils (%) (Auto) 0.6 % Neutrophils # (Auto) 5.5 TH/MM3 Lymphocytes # (Auto) 3.5 TH/MM3 Monocytes # (Auto) 0.5 TH/MM3 Eosinophils # (Auto) 0.2 TH/MM3 Basophils # (Auto) 0.1 TH/MM3 CBC Comment DIFF FINAL Differential Comment Blood Urea Nitrogen 7 MG/DL Creatinine 0.43 MG/DL Random Glucose 99 MG/DL Total Protein 7.0 GM/DL Albumin 4.0 GM/DL Calcium Level 8.1 MG/DL Magnesium Level 2.3 MG/DL Alkaline Phosphatase 118 U/L Aspartate Amino Transf (AST/SGOT) 14 U/L Alanine Aminotransferase (ALT/SGPT) 22 U/L Total Bilirubin 0.4 MG/DL Sodium Level 138 MEQ/L Potassium Level 3.4 MEQ/L Chloride Level 105 MEQ/L Carbon Dioxide Level 25.8 MEQ/L Anion Gap 7 MEQ/L Estimat Glomerular Filtration Rate 150 ML/MIN Lactic Acid Level 0.6 mmol/L Lipase 114 U/L Thyroid Stimulating Hormone 3rd Gen 0.402 uIU/ML [facility] Medical Decision Making Medical Screen Exam Complete: Yes Emergency Medical Condition: Yes Medical Record Reviewed: Yes Interpretation(s) EKG normal sinus rhythm rate [address] elevation injury pattern or ectopy noted Last Impressions Chest X-Ray 02/19/17 Signed Impressions: Service Date/Time: Sunday, February 19, 2017 22:44 - CONCLUSION: 1. No acute cardiopulmonary disease. Saud Santiago MD CBC & BMP Diagram 02/19/17 22:30 Total Protein 7.0, Albumin 4.0, Calcium Level 8.1 L, Magnesium Level 2.3, Alkaline Phosphatase 118 H, Aspartate Amino Transf (AST/SGOT) 14 L, Alanine Aminotransferase (ALT/SGPT) 22, Total Bilirubin 0.4 Differential Diagnosis Generalized weakness, electrolyte disturbance, UTI, gastritis, peptic ulcer disease, pancreatitis, biliary colic Narrative Course Well-developed well-nourished female in no acute distress no respiratory distress with approximately 1 year of nausea and generalized weakness recently seen by her provider who is ordered blood work that she has not yet had done presents now because of persistent nausea. Specimens collected and sent for resulting Patient identified to have mild hypokalemia and hypocalcemia patient given oral replacement; patient is otherwise stable for outpatient management and follow- up with her primary care provider as planned Diagnosis Primary Impression: Nausea alone Additional Impression: Hypocalcemia Referrals: Primary Care Physician 2 days Patient Instructions: General Instructions Additional Instructions: follow-up with your primary care provider as scheduled Return to the emergency department as needed Continue current medications as presently prescribed Med/Other Pt SpecificInfo: Prescription(s) given Scripts Ondansetron Odt (Zofran Odt) 4 Mg Tab 4 MG SL Q6HR Y for Nausea/Vomiting, #10 TAB 0 Refills Prov: Nadia Stanley MD 02/20/17 Disposition: 01 DISCHARGE HOME Condition: Stable Nadia Stanley MD Feb 19, 2017 23:37
[2017-02-19] MEDS ORDERED: CALCIUM CARBONATE 500 MG CHEWABLE TAB CHEW ONE (23:45)
[2017-02-20 00:29] VITALS: BP 128/88
[2017-02-20] MEDS ORDERED: ZOFR4TAB3 SL (00:55)
--- NOTE | 2017-02-20 13:09 | EKG ---
Date Performed: 02/19/2017 Time Performed: 22:23:28 PTAGE: 61 years EKG: Sinus rhythm POSSIBLE LEFT ATRIAL ENLARGEMENT BORDERLINE ECG PREVIOUS TRACING : 04/28/2016 22.42 DOCTOR: Taye Lozano Interpretating Date/Time 02/20/2017 13:07:37
== END 2017-02-20 01:09 | disposition home or self-care (01) ==
LOC: PHED 19:18
DX: R11.0 Nausea (principal); E83.51 Hypocalcemia; E87.6 Hypokalemia; R10.13 Epigastric pain; R63.4 Abnormal weight loss; R94.31 Abnormal electrocardiogram [ECG] [EKG]; E03.9 Hypothyroidism, unspecified; I10 Essential (primary) hypertension; E78.5 Hyperlipidemia, unspecified; M54.5 Low back pain; G89.29 Other chronic pain; F17.200 Nicotine dependence, unspecified, uncomplicated; Z87.39 Personal history of other diseases of the musculoskeletal system and connective tissue; Z86.59 Personal history of other mental and behavioral disorders; Z86.79 Personal history of other diseases of the circulatory system; Z87.19 Personal history of other diseases of the digestive system
CPT/HCPCS: 71010; 80053; 81001; 83605; 83690; 83735; 84443; 85025; 93005; 96374; 99285; J2405

== ENCOUNTER 2017-02-25 16:30 | Emergency (ER) | payer OTHER ==
[~2017-02-25] VITALS: Ht 158.8 cm; Wt 49.7 kg
[~2017-02-25 16:30] MED LIST changes: -EFFE150C PO; -LISI-515 PO; +LISI40TA PO; -OMEP40CA2 PO; +PARO10TA2 PO; -REGL10TA5 PO; -ROBA750T PO; +ZANT150T2 PO; +ZOFR4TAB3 SL
[2017-02-25 16:39] VITALS: BP 248/115; PULSE 76; RESP 18; TEMP 98.3; O2SAT 96
[2017-02-25] MEDS ORDERED: SODIUM CHLOR 0.9% 1000 ML INJ 1,000 ML IV SCH (17:13)
[2017-02-25] MEDS ORDERED: MORPHINE SULFATE 4 MG/ML INJ IV PUSH ONE (17:15)
[2017-02-25] MEDS ORDERED: LABETALOL HCL 100 MG/20 ML VIAL IV PUSH ONE (17:15)
[2017-02-25] MEDS ORDERED: PROCHLORPERAZINE INJ 10 MG/2 ML VIAL IV PUSH ONE (17:15)
[2017-02-25] MEDS ORDERED: SODIUM CHLORIDE 0.9% FLUSH 10 ML FLUSH IV FLUSH PRN (17:15)
--- NOTE | 2017-02-25 17:24 | PD ---
HPI Chief Complaint: Hypertension Time Seen by Provider: 16:52 Travel History International Travel<30 days: No Contact w/Intl Traveler<30days: No Traveled to known affect area: No History of Present Illness HPI The patient is a 61-year-old female who presents to the emergency department for hypertension and abdominal pain. The patient states she has a history of hypertension and takes lisinopril once a day and propanolol twice a day. However, over the last 2 weeks the patient has had some increasing symptoms including headache, blurry vision, lightheadedness, dizziness, and nausea. The patient then developed abdominal pain, mostly epigastric, now radiating diffusely, moderate, sharp, constant. The patient states she saw her primary physician who referred her to the emergency department because her blood pressure was elevated. She does note intermittent throbbing headaches, denies any acute focal deficits of the upper or lower extremities. Symptoms are moderate, possibly exacerbated by history of hypertension. The patient also has a history of previous hysterectomy with subsequent abdominal adhesions requiring surgery for lysis of adhesions, after the lesions were wrapped around the liver. The patient's last normal bowel movement was yesterday, she denies any change in bowel pattern. She does complain of constant nausea and states the Zofran that was administered by her physician did not alleviate her symptoms. PFSH Past Medical History Arthritis: Yes Asthma: No Autoimmune Disease: No Blood Disorders: No Anxiety: Yes Depression: No Heart Rhythm Problems: No Cancer: No Cardiovascular Problems: Yes (HTN) High Cholesterol: Yes Chemotherapy: No Chest Pain: Yes Congestive Heart Failure: No COPD: No Cerebrovascular Accident: No Diabetes: No Diminished Hearing: No Diverticulitis: Yes Endocrine: No Gastrointestinal Disorders: Yes (GERD) GERD: Yes Glaucoma: No Genitourinary: No Headaches: Yes Hepatitis: No Hiatal Hernia: No Hypertension: Yes Immune Disorder: No Implanted Vascular Access Dvce: No Kidney Stones: No Musculoskeletal: Yes (CHRONIC BACK AND LEG PAIN, L ROTATOR CUFF INJURY) Neurologic: Yes (HEADACHES) Psychiatric: No Reproductive: No Respiratory: Yes (COUGHING) Immunizations Current: Yes Myocardial Infarction: No Radiation Therapy: No Renal Failure: No Seizures: No Sickle Cell Disease: No Sleep Apnea: No Thyroid Disease: Yes (HYPOTHYROIDISM) Triglycerides - High: Yes Ulcer: No ?: Not : 0 Past Surgical History Abdominal Surgery: Yes (ADHESIONLYSIS) AICD: No Appendectomy: Yes Cardiac Surgery: No Cholecystectomy: Yes Ear Surgery: No Endocrine Surgery: No Eye Surgery: No Genitourinary Surgery: No Gynecologic Surgery: Yes (HYSTERECTOMY) Hysterectomy: Yes Insulin Pump: No Joint Replacement: No Neurologic Surgery: No Oral Surgery: No Pacemaker: No Thoracic Surgery: Yes (GALL BLADDER REMOVED 1995) Other Surgery: Yes (ADHESIONS on liver and stomach) Family History Family Myocardial Infarction: Yes Social History Alcohol Use: No Tobacco Use: Yes (1PPD) Substance Use: No Allergies-Medications (Allergen,Severity, Reaction): Coded Allergies: Fish Containing Products (Unverified Allergy, Severe, Anaphylaxis, ) erythromycin base (Unverified Allergy, Intermediate, "facial swelling", ) penicillin G (Unverified Allergy, Intermediate, "facial swelling", ) hydromorphone (Unverified Adverse Reaction, Severe, Nausea/Vomiting, 02/25) headache, diarrhea ibuprofen (Unverified Adverse Reaction, Intermediate, NAUSEA, facial swelling, 02/25/17) Reported Meds & Prescriptions Reported Meds & Active Scripts Active Zofran Odt (Ondansetron Odt) 4 Mg Tab 4 Mg SL Q6HR PRN Flexeril (Cyclobenzaprine HCl) 5 Mg Tab 5 Mg PO TID Reported Zantac (Ranitidine HCl) 150 Mg Tab 150 Mg PO BID Paroxetine (Paroxetine HCl) 10 Mg Tab 10 Mg PO DAILY Lisinopril 40 Mg Tab 40 Mg PO DAILY Proair Hfa 8.5 GM Inh (Albuterol Sulfate) 90 Mcg/Act Aer 1 Puff INH Q4H PRN 108 mcg/actuation Lyrica (Pregabalin) 75 Mg Cap 75 Mg PO DAILY Lovastatin 10 Mg Tab 10 Mg PO DAILY Levothyroxine (Levothyroxine Sodium) 75 Mcg Tab 75 Mcg PO DAILY Propranolol (Propranolol HCl) 10 Mg Tab 10 Mg PO Q12HR Mobic (Meloxicam) 15 Mg Tab 15 Mg PO BID Hydrocodone-Acetaminophen 10-325 mg Tab 1 Tab PO Q6H PRN Review of Systems Except as stated in HPI: all other systems reviewed are Neg General / Constitutional: No: Fever Eyes: Positive: Blurred Vision HENT: Positive: Headaches, Lightheadedness Cardiovascular: No: Chest Pain or Discomfort Respiratory: No: Shortness of Breath Gastrointestinal: Positive: Nausea, Vomiting, Abdominal Pain Genitourinary: No: Dysuria Musculoskeletal: No: Weakness Neurologic: Positive: Dizziness, Headache, No: Weakness, Change in Mentation, Slurred Speech, Paresthesia, Sensory Disturbance Physical Exam Narrative GENERAL: Awake, alert, pleasant 61-year-old female who appears her stated age and is in no acute respiratory distress. SKIN: Focused skin assessment warm/dry. HEAD: Atraumatic. Normocephalic. EYES: Pupils equal and round. Pupils are 3 mm bilateral and reactive. EOMs are intact. Patient is a was see fingers at a distance of 2 feet without difficulty. ENT: No nasal bleeding or discharge. Mucous membranes pink and moist. NECK: Trachea midline. No JVD. CARDIOVASCULAR: Regular rate and rhythm. No murmur appreciated. RESPIRATORY: No accessory muscle use. Clear to auscultation. Breath sounds equal bilaterally. GASTROINTESTINAL: Abdomen soft, diffusely tender but no rebound tenderness, guarding, or rigidity. No obvious tympany or distention. MUSCULOSKELETAL: No obvious deformities. No clubbing. No cyanosis. No edema. NEUROLOGICAL: Awake and alert. No obvious cranial nerve deficits. Motor grossly within normal limits. Normal speech. Nonfocal. Oriented 4. Follows commands without difficulty. PSYCHIATRIC: Appropriate mood and affect; insight and judgment normal. Data Data Last Documented VS Vital Signs Date Time Temp Pulse Resp B/P (MAP) Pulse Ox O2 Delivery O2 Flow Rate FiO2 02/25/17 18:49 98 02/25/17 18:30 72 02/25/17 16:47 18 Room Air 02/25/17 16:39 98.3 Orders Orders Complete Blood Count With Diff (02/25/17 17:13) Comprehensive Metabolic Panel (02/25/17 17:13) Lipase (02/25/17 17:13) Urinalysis - C+S If Indicated (02/25/17 17:13) Ct Abd/Pel W/O Iv Contrast (02/25/17 17:13) Iv Access Insert/Monitor (02/25/17 17:13) Ecg Monitoring (02/25/17 17:13) Oximetry (02/25/17 17:13) Morphine Inj (Morphine Inj) (02/25/17 17:15) Sodium Chlor 0.9% 1000 Ml Inj (Ns 1000 M (02/25/17 17:13) Sodium Chloride 0.9% Flush (Ns Flush) (02/25/17 17:15) Electrocardiogram (02/25/17 17:13) Ct Brain W/O Iv Contrast(Rout) (02/25/17 ) Prochlorperazine Inj (Compazine Inj) (02/25/17 17:15) Labetalol Inj (Trandate Inj) (02/25/17 17:15) Ondansetron Inj (Zofran Inj) (02/25/17 18:30) Labs Laboratory Tests Test 02/25/17 17:40 White Blood Count 8.8 TH/MM3 Red Blood Count 4.74 MIL/MM3 Hemoglobin 15.1 GM/DL Hematocrit 44.5 % Mean Corpuscular Volume 93.9 FL Mean Corpuscular Hemoglobin 32.0 PG Mean Corpuscular Hemoglobin Concent 34.1 % Red Cell Distribution Width 13.1 % Platelet Count 271 TH/MM3 Mean Platelet Volume 8.3 FL Neutrophils (%) (Auto) 52.7 % Lymphocytes (%) (Auto) 36.5 % Monocytes (%) (Auto) 6.4 % Eosinophils (%) (Auto) 2.7 % Basophils (%) (Auto) 1.7 % Neutrophils # (Auto) 4.7 TH/MM3 Lymphocytes # (Auto) 3.2 TH/MM3 Monocytes # (Auto) 0.6 TH/MM3 Eosinophils # (Auto) 0.2 TH/MM3 Basophils # (Auto) 0.1 TH/MM3 CBC Comment DIFF FINAL Differential Comment Urine Collection Type CLEAN CATCH Urine Color STRAW Urine Turbidity CLEAR Urine pH 7.0 Urine Specific [place] 1.003 Urine Protein NEG mg/dL Urine Glucose (UA) NEG mg/dL Urine Ketones NEG mg/dL Urine Occult Blood SMALL Urine Nitrite NEG Urine Bilirubin NEG Urine Leukocyte Esterase NEG Urine RBC 0-3 /hpf Urine Squamous Epithelial Cells 0-5 /hpf Microscopic Urinalysis Comment CULT NOT INDICATED Urine Collection Time 17:40 Blood Urea Nitrogen 9 MG/DL Creatinine 0.62 MG/DL Random Glucose 85 MG/DL Total Protein 7.5 GM/DL Albumin 4.1 GM/DL Calcium Level 9.4 MG/DL Alkaline Phosphatase 117 U/L Aspartate Amino Transf (AST/SGOT) 12 U/L Alanine Aminotransferase (ALT/SGPT) 23 U/L Total Bilirubin 0.2 MG/DL Sodium Level 137 MEQ/L Potassium Level 3.8 MEQ/L Chloride Level 100 MEQ/L Carbon Dioxide Level 31.7 MEQ/L Anion Gap 5 MEQ/L Estimat Glomerular Filtration Rate 98 ML/MIN Lipase 126 U/L MDM Medical Decision Making Medical Screen Exam Complete: Yes Emergency Medical Condition: Yes Medical Record Reviewed: Yes Interpretation(s) EKG reveals normal sinus rhythm with a rate of 74. No ischemic changes or ectopy noted. Laboratory Tests Test 02/25/17 17:40 White Blood Count 8.8 TH/MM3 Red Blood Count 4.74 MIL/MM3 Hemoglobin 15.1 GM/DL Hematocrit 44.5 % Mean Corpuscular Volume 93.9 FL Mean Corpuscular Hemoglobin 32.0 PG Mean Corpuscular Hemoglobin Concent 34.1 % Red Cell Distribution Width 13.1 % Platelet Count 271 TH/MM3 Mean Platelet Volume 8.3 FL Neutrophils (%) (Auto) 52.7 % Lymphocytes (%) (Auto) 36.5 % Monocytes (%) (Auto) 6.4 % Eosinophils (%) (Auto) 2.7 % Basophils (%) (Auto) 1.7 % Neutrophils # (Auto) 4.7 TH/MM3 Lymphocytes # (Auto) 3.2 TH/MM3 Monocytes # (Auto) 0.6 TH/MM3 Eosinophils # (Auto) 0.2 TH/MM3 Basophils # (Auto) 0.1 TH/MM3 CBC Comment DIFF FINAL Differential Comment Urine Collection Type CLEAN CATCH Urine Color STRAW Urine Turbidity CLEAR Urine pH 7.0 Urine Specific [place] 1.003 Urine Protein NEG mg/dL Urine Glucose (UA) NEG mg/dL Urine Ketones NEG mg/dL Urine Occult Blood SMALL Urine Nitrite NEG Urine Bilirubin NEG Urine Leukocyte Esterase NEG Urine RBC 0-3 /hpf Urine Squamous Epithelial Cells 0-5 /hpf Microscopic Urinalysis Comment CULT NOT INDICATED Urine Collection Time 17:40 Blood Urea Nitrogen 9 MG/DL Creatinine 0.62 MG/DL Random Glucose 85 MG/DL Total Protein 7.5 GM/DL Albumin 4.1 GM/DL Calcium Level 9.4 MG/DL Alkaline Phosphatase 117 U/L Aspartate Amino Transf (AST/SGOT) 12 U/L Alanine Aminotransferase (ALT/SGPT) 23 U/L Total Bilirubin 0.2 MG/DL Sodium Level 137 MEQ/L Potassium Level 3.8 MEQ/L Chloride Level 100 MEQ/L Carbon Dioxide Level 31.7 MEQ/L Anion Gap 5 MEQ/L Estimat Glomerular Filtration Rate 98 ML/MIN Lipase 126 U/L Last Impressions Head CT 02/25/17 0000 Signed Impressions: Service Date/Time: Saturday, February 25, 2017 17:48 - CONCLUSION: Normal examination. Rico Charles MD CT the abdomen and pelvis reveals no acute abnormality is seen. Colonic diverticula and suspected hypertrophy. Significant inflammatory changes not seen. The patient is status post hysterectomy. Differential Diagnosis Differential diagnosis includes hypertensive urgency, hypertensive emergency, intracranial hemorrhage, gastritis, small bowel obstruction, abdominal adhesions , electrolyte abnormality. Narrative Course IV was established, labs are drawn and sent, and the patient was placed on cardiac telemetry monitoring and continuous pulse oximetry monitoring. EKG was ordered and interpreted. CT of the brain and abdomen/pelvis were obtained. The patient was administered morphine, Compazine, labetalol, and IV fluids. The patient's laboratory evaluation is essentially unremarkable except for a small amount of blood in the UA. Lipase and LFTs are unremarkable. No evidence of pancreatitis. Patient was reevaluated at 6:30 PM, her systolic blood pressure was in the 150s and diastolic was in the 90s. The patient's symptoms had improved, however, she still had mild nausea. Therefore, patient was administered Zofran intravenously. Diagnosis Primary Impression: Hypertensive urgency Additional Impression: Nausea Patient Instructions: General Instructions Additional Instructions: Medications as directed. Follow-up with your primary physician. Return if symptoms worsen or progress. Clear liquid diet and advance as tolerated. Monitor blood pressure and keep a log for your primary physician. Return if symptoms worsen or progress. Med/Other Pt SpecificInfo: Prescription(s) given Scripts Promethazine (Phenergan) 25 Mg Tablet 25 MG PO Q6H Y for NAUSEA OR VOMITING, #10 TAB 0 Refills Prov: Misha Serra MD 02/25/17 Ondansetron Odt (Zofran Odt) 4 Mg Tab 4 MG SL Q6HR Y for Nausea/Vomiting, #10 TAB 0 Refills Prov: Misha Serra MD 02/25/17 Disposition: 01 DISCHARGE HOME Condition: Stable Misha Serra MD Feb 25, 2017 17:24
[2017-02-25 17:55] LABS: AUTOMATED NEUTROPHIL # 4.7 TH/MM3 (1.8-7.7); BASOPHIL # 0.1 TH/MM3 (0-0.2); BASOPHIL % 1.7 % (0.0-2.0); EOSINOPHIL # 0.2 TH/MM3 (0-0.4); EOSINOPHIL % 2.7 % (0.0-4.0); HEMATOCRIT 44.5 % (35.0-46.0); HEMO FLAGS DIFF FINAL; LYMPH % 36.5 % (9.0-44.0); LYMPHOCYTE # 3.2 TH/MM3 (1.0-4.8); MEAN CELL VOLUME 93.9 FL (80.0-100.0); MEAN CORPUSCULAR HGB CONC 34.1 % (32.0-36.0); MONO % 6.4 % (0.0-8.0); NEUT % 52.7 % (16.0-70.0); PLATELET COUNT 271 TH/MM3 (150-450); RED BLOOD COUNT 4.74 MIL/MM3 (4.00-5.30); RED CELL DISTRIBUTION WIDTH 13.1 % (11.6-17.2); WHITE BLOOD COUNT 8.8 TH/MM3 (4.0-11.0)
[2017-02-25 18:00] VITALS: BP 185/106; PULSE 78
[2017-02-25 18:02] LABS: BLOOD, URINE SMALL (NEG); GLUCOSE,URINE NEG (NEG); KETONE, URINE NEG (NEG); NITRITE,URINE NEG (NEG)
[2017-02-25 18:04] LABS: COMMENT (UR) CULT NOT INDICATED; CULTURE IF INDICATED CULT NOT INDICATED; METHOD OF COLLECTION CLEAN CATCH; RBC, URINE 0-3 /hpf (0-3); SQUAMOUS EPITHELIAL CELL URINE 0-5 /hpf (0-5); URINE COLOR STRAW (YELLW/STRAW)
[2017-02-25 18:15] VITALS: BP 152/93; PULSE 70
[2017-02-25 18:16] LABS: CHLORIDE 100 MEQ/L (98-107); POTASSIUM 3.8 MEQ/L (3.5-5.1); SODIUM (NA) 137 MEQ/L (136-145)
[2017-02-25 18:21] LABS: ANION GAP 5 MEQ/L (5-15); BICARBONATE 31.7 MEQ/L (21.0-32.0); BLOOD UREA NITROGEN 9 MG/DL (7-18)
[2017-02-25 18:23] LABS: ALT (GPT) 23 U/L (10-53); AST (GOT) 12 U/L (15-37); GLOMERULAR FILTRATION RATE 98 ML/MIN (>89)
[2017-02-25 18:25] LABS: TOTAL BILIRUBIN ADULT 0.2 MG/DL (0.2-1.0)
[2017-02-25 18:26] LABS: ALKALINE PHOSPHATASE 117 U/L (45-117)
[2017-02-25 18:30] VITALS: BP 156/88; PULSE 72
[2017-02-25] MEDS ORDERED: ONDANSETRON HCL 4 MG/2 ML VIAL IV PUSH ONE (18:30)
--- NOTE | 2017-02-25 18:46 | RADRPT ---
EXAM DATE/TIME: 02/25/2017 17:48 [facility] COMPARISON: CT BRAIN W/O CONTRAST, August 15, 2013, 20:54. INDICATIONS : Cephalgia, dizziness, blurred vision and nausea x 2 weeks. RADIATION DOSE: 55.36 CTDIvol (mGy) MEDICAL HISTORY : Gastroesophageal reflux disease. Hypertension. Diverticulitis. SURGICAL HISTORY : Appendectomy. Cholecystectomy.Hysterectomy. ENCOUNTER: Initial ACUITY: 2 weeks PAIN SCALE: 4/10 LOCATION: cranial TECHNIQUE: Multiple contiguous axial images were obtained of the head. Using automated exposure control and adj ustment of the mA and/or kV according to patient size, radiation dose was kept as low as reasonably a chievable to obtain optimal diagnostic quality images. DICOM format image data is available electro nically for review and comparison. FINDINGS: CEREBRUM: The ventricles are normal for age. No evidence of midline shift, mass lesion, hemorrhage or acute in farction. No extra-axial fluid collections are seen. POSTERIOR FOSSA: The cerebellum and brainstem are intact. The 4th ventricle is midline. The cerebellopontine angle i s unremarkable. EXTRACRANIAL: The visualized portion of the orbits is intact. SKULL: The calvaria is intact. No evidence of skull fracture. CONCLUSION: Normal examination. Rico Charles MD on February 25, 2017 at 18:44 Board Certified Radiologist. This report was verified electronically.
[2017-02-25 18:49] VITALS: O2SAT 98
--- NOTE | 2017-02-25 19:02 | RADRPT ---
EXAM DATE/TIME: 02/25/2017 17:51 [place] COMPARISON: No previous studies available for comparison. INDICATIONS : Upper abdominal pain and nausea. ORAL CONTRAST: No oral contrast ingested. RADIATION DOSE: 4.67 CTDIvol (mGy) MEDICAL HISTORY : Hypertension. Gastroesophageal reflux disease. Diverticulitis. SURGICAL HISTORY : Appendectomy. Cholecystectomy.Hysterectomy. ENCOUNTER: Initial ACUITY: 4 - 6 days PAIN SCALE: 6/10 LOCATION: Bilateral upper quadrant TECHNIQUE: Volumetric scanning of the abdomen and pelvis was performed. Using automated exposure control and ad justment of the mA and/or kV according to patient size, radiation dose was kept as low as reasonably achievable to obtain optimal diagnostic quality images. DICOM format image data is available electro nically for review and comparison. FINDINGS: LOWER LUNGS: The visualized lower lungs are clear. LIVER: Homogeneous density without lesion. There is no dilation of the biliary tree. The patient is status post cholecystectomy. SPLEEN: Normal size without lesion. PANCREAS: Within normal limits. KIDNEYS: Normal in size and shape. There is no mass, stone, or hydronephrosis. ADRENAL GLANDS: Within normal limits. VASCULAR: There is no aortic aneurysm. BOWEL/MESENTERY: There are colonic diverticula in the descending and sigmoid portions of the colon. There is some thic kening of the colon in this region. Surrounding inflammatory changes not seen. ABDOMINAL WALL: Within normal limits. RETROPERITONEUM: There is no lymphadenopathy. BLADDER: No wall thickening or mass. REPRODUCTIVE: The patient is status post hysterectomy. INGUINAL: There is no lymphadenopathy or hernia. MUSCULOSKELETAL: Within normal limits for patient age. CONCLUSION: 1. No acute abnormality is seen. 2. Colonic diverticula and suspected hypertrophy. Significant inflammatory changes not seen. 3. The patient is status post hysterectomy. Rico Charles MD on February 25, 2017 at 18:57 Board Certified Radiologist. This report was verified electronically.
[2017-02-25] MEDS ORDERED: ZOFR4TAB3 SL (19:03)
[2017-02-25] MEDS ORDERED: PROM25TA10 PO (19:03)
[2017-02-25] MEDS ORDERED: AMLO5 PO (19:09)
[2017-02-25 19:25] VITALS: BP 164/88
--- NOTE | 2017-02-26 09:19 | EKG ---
Date Performed: 02/25/2017 Time Performed: 17:22:06 PTAGE: 61 years EKG: Sinus rhythm POSSIBLE LEFT ATRIAL ENLARGEMENT Compared to prior tracing no significant change BORDERLINE ECG PREVIOUS TRACING : 02/19/2017 22.23 DOCTOR: Saud Miguel Interpretating Date/Time 02/26/2017 09:17:39
== END 2017-02-25 19:34 | disposition home or self-care (01) ==
LOC: PHED 16:30
DX: I16.0 Hypertensive urgency (principal); R11.0 Nausea; R94.31 Abnormal electrocardiogram [ECG] [EKG]; F17.210 Nicotine dependence, cigarettes, uncomplicated
CPT/HCPCS: 70450; 74176; 80053; 81001; 83690; 85025; 93005; 96361; 96374; 96375; 99285; J0780; J2270; J2405; J7030

== ENCOUNTER 2017-02-28 18:29 | Emergency (ER) | payer OTHER ==
[~2017-02-28] VITALS: Ht 158.8 cm; Wt 49.2 kg
[2017-02-28] VITALS (7 sets, daily range): BP systolic 165–208; BP diastolic 85–114; PULSE 61–82; RESP 14–16; TEMP 98.4–99.1; O2SAT 96–99
[~2017-02-28 18:29] MED LIST changes: +AMLO5 PO; +PROM25TA10 PO
--- NOTE | 2017-02-28 19:24 | PD ---
HPI Chief Complaint: Hypertension Time Seen by Provider: 19:17 Travel History International Travel<30 days: No Contact w/Intl Traveler<30days: No Traveled to known affect area: No History of Present Illness HPI 61 year-old female presents to the emergency department by private transportation for her third visit in 10 days for complaint of dizziness nausea and not feeling well. Patient presented 02/19/17 complaining of nausea 1 year. Patient states she is being followed by her primary care provider Dr. Hanson/Leyda at her primary care provider's office her pain management doctor Dr. Singh and her orthopedist Dr. Ray. Patient states she is also being followed closely by her pillowcase maker through her insurer. Patient is on multiple medications for hypertension chronic pain syndrome and osteoporosis. As well as hypothyroidism, dyslipidemia, and emphysema. Patient continues to smoke one pack per day of cigarettes. Patient states that she has had also a headache approximately 2 months in duration that primarily it is worse in the morning upon awakening and then is also noted some intermittent dizziness throughout the day. Patient is also had intermittent chest discomfort 2 weeks. Patient has not followed up in the past 10 days with her primary care provider for any of her ER visits. During her last visit 02/25/17 she was started on new antihypertensive agent which she states she has begun to take. Patient denies any new complaints but was encouraged to come back to the emergency department by her nurse pillowcase maker due to issues with her blood pressure. Patient denies any recent febrile illness. Patient denies any injury or fall. Patient denies any thunderclap headache worst ever headache visual disturbance change in mentation change in speech or new upper extremity or lower extremity numbness tingling or weakness or ataxia of gait. Patient presently denies any chest pain or shortness of breath. Patient currently denies any referred neck jaw back shoulder or arm pain. Patient does state her chronic headache is 5/10 in intensity. Patient states she has taken her medications as prescribed including her Lortab. During visit 02/25/17 for same complaint patient did have CT brain noncontrast which revealed no acute abnormality as well as CT abdomen and pelvis which revealed no acute abnormality specific no abdominal aortic aneurysm and is identified to have diverticulosis without diverticulitis; also had Norvasc added to her antihypertensive regimen of propranolol and lisinopril. PFSH Past Medical History Narrative Medical Arthritis, anxiety, osteoporosis, dyslipidemia, hypertension, diverticulosis, hysterectomy, adhesive lysis, tobaccoism one pack per day, chronic pain syndrome , appendectomy, cholecystectomy; nursing notes reviewed Hx Anticoagulant Therapy: No Arthritis: Yes Asthma: No Autoimmune Disease: No Blood Disorders: No Anxiety: Yes Depression: No Heart Rhythm Problems: No Cancer: No Cardiovascular Problems: Yes (HTN, CHOL) High Cholesterol: Yes Chemotherapy: No Chest Pain: Yes Congestive Heart Failure: No COPD: No Cerebrovascular Accident: No Diabetes: No Diminished Hearing: No Diverticulitis: Yes Endocrine: No Gastrointestinal Disorders: Yes (GERD) GERD: Yes Glaucoma: No Genitourinary: No Headaches: Yes Hepatitis: No Hiatal Hernia: No Hypertension: Yes Immune Disorder: No Implanted Vascular Access Dvce: No Kidney Stones: No Musculoskeletal: Yes (CHRONIC BACK AND LEG PAIN, L ROTATOR CUFF INJURY) Neurologic: Yes (HEADACHES) Psychiatric: No Reproductive: No Respiratory: Yes (COUGHING) Immunizations Current: Yes Myocardial Infarction: No Radiation Therapy: No Renal Failure: No Seizures: No Sickle Cell Disease: No Sleep Apnea: No Thyroid Disease: Yes (HYPOTHYROIDISM) Triglycerides - High: Yes Ulcer: No ?: Not : 0 Past Surgical History Abdominal Surgery: Yes (ADHESIONLYSIS) AICD: No Appendectomy: Yes Cardiac Surgery: No Cholecystectomy: Yes Ear Surgery: No Endocrine Surgery: No Eye Surgery: No Genitourinary Surgery: No Gynecologic Surgery: Yes (HYSTERECTOMY) Hysterectomy: Yes Insulin Pump: No Joint Replacement: No Neurologic Surgery: No Oral Surgery: No Pacemaker: No Thoracic Surgery: Yes (GALL BLADDER REMOVED 1995) Other Surgery: Yes (ADHESIONS on liver and stomach) Social History Alcohol Use: No Tobacco Use: Yes (1PPD) Substance Use: No Allergies-Medications (Allergen,Severity, Reaction): Coded Allergies: Fish Containing Products (Unverified Allergy, Severe, Anaphylaxis, ) erythromycin base (Unverified Allergy, Intermediate, "facial swelling", ) penicillin G (Unverified Allergy, Intermediate, "facial swelling", ) hydromorphone (Unverified Adverse Reaction, Severe, Nausea/Vomiting, 02/28) headache, diarrhea ibuprofen (Unverified Adverse Reaction, Intermediate, NAUSEA, facial swelling, 02/28/17) Reported Meds & Prescriptions Reported Meds & Active Scripts Active Norvasc (Amlodipine Besylate) 5 Mg Tab 5 Mg PO DAILY Phenergan (Promethazine HCl) 25 Mg Tablet 25 Mg PO Q6H PRN Zofran Odt (Ondansetron Odt) 4 Mg Tab 4 Mg SL Q6HR PRN Flexeril (Cyclobenzaprine HCl) 5 Mg Tab 5 Mg PO TID Reported Zantac (Ranitidine HCl) 150 Mg Tab 150 Mg PO BID Paroxetine (Paroxetine HCl) 10 Mg Tab 10 Mg PO DAILY Lisinopril 40 Mg Tab 40 Mg PO DAILY Proair Hfa 8.5 GM Inh (Albuterol Sulfate) 90 Mcg/Act Aer 1 Puff INH Q4H PRN 108 mcg/actuation Lyrica (Pregabalin) 75 Mg Cap 75 Mg PO DAILY Lovastatin 10 Mg Tab 10 Mg PO DAILY Levothyroxine (Levothyroxine Sodium) 75 Mcg Tab 75 Mcg PO DAILY Propranolol (Propranolol HCl) 10 Mg Tab 10 Mg PO Q12HR Mobic (Meloxicam) 15 Mg Tab 15 Mg PO BID Hydrocodone-Acetaminophen 10-325 mg Tab 1 Tab PO Q6H PRN Review of Systems Except as stated in HPI: all other systems reviewed are Neg General / Constitutional: No: Fever, Chills Eyes: No: Diploplia, Blurred Vision HENT: Positive: Headaches, Lightheadedness, No: Neck Stiffness, Neck Pain Cardiovascular: No: Chest Pain or Discomfort, Palpitations, Diaphoresis Respiratory: No: Shortness of Breath Gastrointestinal: Positive: Nausea, Vomiting (rarely --"stomach contents"), No : Hematemesis, Hematochezia Genitourinary: No: Dysuria, Flank Pain Musculoskeletal: Positive: Pain (chronic neck and back pain), No: Myalgias, Arthralgias Skin: No Rash Neurologic: Positive: Dizziness, No: Weakness, Syncope, Focal Abnormalities, Coordination Problem Psychiatric: No: Anxiety, Suicidal Ideations Endocrine: No: Heat Intolerance, Cold Intolerance Hematologic/Lymphatic: No: Easy Bruising Physical Exam Narrative GENERAL: Well-developed well-nourished female in no acute distress no respiratory distress SKIN: Warm and dry. HEAD: Atraumatic. Normocephalic. EYES: Pupils equal and round. No scleral icterus. No injection or drainage. ENT: No nasal bleeding or discharge. Mucous membranes pink and moist. NECK: Trachea midline. No JVD. CARDIOVASCULAR: Regular rate and rhythm. RESPIRATORY: No accessory muscle use. Clear to auscultation. Breath sounds equal bilaterally. GASTROINTESTINAL: Abdomen soft, non-tender, nondistended. Hepatic and splenic margins not palpable. MUSCULOSKELETAL: Extremities without clubbing, cyanosis, or edema. No obvious deformities. Bilateral radial and dorsalis pedis pulses 2+ to palpation. NEUROLOGICAL: Awake and alert. No obvious cranial nerve deficits. Motor grossly within normal limits. Five out of 5 muscle strength in the arms and legs. No focality on exam. Normal speech. PSYCHIATRIC: Appropriate mood and affect; insight and judgment normal. Data Data Last Documented VS Vital Signs Date Time Temp Pulse Resp B/P (MAP) Pulse Ox O2 Delivery O2 Flow Rate FiO2 02/28/17 21:40 98.4 70 15 169/85 (113) 96 02/28/17 21:26 Room Air Orders Orders Electrocardiogram (02/28/17 19:17) Basic Metabolic Panel (Bmp) (02/28/17 19:17) Magnesium (Mg) (02/28/17 19:17) Ckmb (Isoenzyme) Profile (02/28/17 19:17) Troponin I (02/28/17 19:17) Ua Includes Microscopic (02/28/17 19:17) Ecg Monitoring (02/28/17:17) Iv Access Insert/Monitor (02/28/17 19:17) Oximetry (02/28/17 19:17) Ondansetron Inj (Zofran Inj) (02/28/17 19:30) Sodium Chloride 0.9% Flush (Ns Flush) (02/28/17 19:30) Drug Screen, Random Urine (02/28/17 19:24) Labetalol Inj (Trandate Inj) (02/28/17 19:30) Bilateral Bp Monitoring (02/28/17 19:28) Alcohol (Ethanol) (02/28/17 19:17) Complete Blood Count With Diff (02/28/17 20:18) Acetamin-Hydrocod 325-10 Mg ([place] 10-32 (02/28/17 21:30) Ed Discharge Order (02/28/17 21:41) Labs Laboratory Tests Test 02/28/17 19:45 02/28/17 20:00 Urine Color YELLOW Urine Turbidity CLEAR Urine pH 7.0 Urine Specific [place] 1.011 Urine Protein NEG mg/dL Urine Glucose (UA) NEG mg/dL Urine Ketones NEG mg/dL Urine Occult Blood TRACE Urine Nitrite NEG Urine Bilirubin NEG Urine Leukocyte Esterase NEG Urine RBC 0-3 /hpf Urine Squamous Epithelial Cells 0-5 /hpf Blood Urea Nitrogen 8 MG/DL Creatinine 0.52 MG/DL Random Glucose 102 MG/DL Calcium Level 8.9 MG/DL Magnesium Level 2.5 MG/DL Sodium Level 136 MEQ/L Potassium Level 4.0 MEQ/L Chloride Level 103 MEQ/L Carbon Dioxide Level 27.3 MEQ/L Anion Gap 6 MEQ/L Estimat Glomerular Filtration Rate 120 ML/MIN Total Creatine Kinase 73 U/L Troponin I LESS THAN 0.02 NG/ML Urine Opiates Screen NEG Urine Barbiturates Screen NEG Urine Amphetamines Screen NEG Urine Benzodiazepines Screen NEG Urine Cocaine Screen NEG Urine Cannabinoids Screen NEG Ethyl Alcohol Level LESS THAN 3 MG/DL White Blood Count 9.5 TH/MM3 Red Blood Count 4.82 MIL/MM3 Hemoglobin 15.3 GM/DL Hematocrit 45.1 % Mean Corpuscular Volume 93.5 FL Mean Corpuscular Hemoglobin 31.7 PG Mean Corpuscular Hemoglobin Concent 33.9 % Red Cell Distribution Width 13.2 % Platelet Count 283 TH/MM3 Mean Platelet Volume 8.6 FL Neutrophils (%) (Auto) 60.5 % Lymphocytes (%) (Auto) 30.4 % Monocytes (%) (Auto) 5.5 % Eosinophils (%) (Auto) 2.5 % Basophils (%) (Auto) 1.1 % Neutrophils # (Auto) 5.8 TH/MM3 Lymphocytes # (Auto) 2.9 TH/MM3 Monocytes # (Auto) 0.5 TH/MM3 Eosinophils # (Auto) 0.2 TH/MM3 Basophils # (Auto) 0.1 TH/MM3 CBC Comment DIFF FINAL Differential Comment MDM Medical Decision Making Medical Screen Exam Complete: Yes Emergency Medical Condition: Yes Medical Record Reviewed: Yes Interpretation(s) EKG: Normal sinus rhythm rate [address] elevation nonspecific T-wave inversion V1 V2 EKG essentially unchanged from study performed 02/25/17 CK: 73, not elevated; troponin I less than 0.02, not elevated Urine drug screen negative Serum alcohol less than 3, negative Vital Signs Date Time Temp Pulse Resp B/P (MAP) Pulse Ox O2 Delivery O2 Flow Rate FiO2 11/20/17 19:55 68 165/86 (112) 02/28/17 19:51 14 96 Room Air 02/28/17 19:30 170/104 (126) 204/114 (144) 02/28/17 18:36 99.1 82 16 208/97 (134) 96 CBC & BMP Diagram 02/28/17 19:45 Calcium Level 8.9, Magnesium Level 2.5 02/28/17 20:00 Differential Diagnosis Dizziness, hypertensive urgency, hypertensive crisis, medication noncompliance, polypharmacy, chronic pain syndrome, arrhythmia Narrative Course Patient reports that she would like something for pain as she was at her pain management provider's office today and because her blood pressure was too high she did not receive her pain management injection; patient was placed on unit tender with continuous pulse oximetry IV access obtained repeat blood pressure remains markedly elevated patient given one-time dose of labetalol 20 mg IV has received this medication once before 02/25/17 with good blood pressure control and no documented adverse effects. EKG ordered. EKG sinus rhythm no acute ST elevation or injury pattern rate 74 essentially unchanged from study 02/25/17 with nonspecific T-wave inversion V1 and biphasic T waves V2 , no acute injury or ischemic pattern noted. Specimens collected and sent for resulting. At 9:08 PM patient's blood pressure has improved after one-time dose of labetalol; patient now shares that she has been under a lot of increased stress due to the of her brother with whom she was extremely close. Patient does have a strong support mechanisms home she reports that possible family members are also going through a difficult adjustment of the loss of her sibling. Patient has not shared this information with her managing providers. Patient due to her blood pressure was not able to get her steroid injections which controls her chronic neck and back pain very well which is also aggravated her situation as her chronic pain is 7/10 in intensity. Patient states she is doing her best to avoid narcotic use and has decreased her intake of her hydrocodone. Patient has not gone to any grief counseling. Patient is not suicidal or homicidal. Patient is aware that it is important that she takes all of her blood pressure medication as prescribed has only been on the new blood pressure medication Norvasc 5 mg for 2 days. Patient is aware that she needs to have close follow-up with her primary care provider. Patient does not complain of any dizziness or nausea at this time and is taking oral hydration well. Patient has been placed on paroxetine for anxiety and depression by her primary care provider. Patient used to be on lorazepam which was discontinued a while ago. Patient reports she has not had her evening pain medication and BP is again trending upward; patient given her PM dose of [id number]/325. Patient encouraged to take her evening BP med. Diagnosis Primary Impression: Hypertension Qualified Codes: I10 - Essential (primary) hypertension Additional Impression: Anxiety Referrals: Pain Management call for appointment Primary Care Physician 1 day Patient Instructions: General Instructions Additional Instructions: Follow-up with your primary care provider call office in a.m. to schedule follow -up appointment this week Follow-up with your pain management provider call office to schedule follow-up appointment Continue blood pressure medication as prescribed check blood pressure twice daily and notify your primary care provider's office of your blood pressure results Take your pain management as prescribed as needed Take Zofran as prescribed as needed for nausea and/or vomiting and your prescription Phenergan for breakthrough nausea and/or vomiting Return to the emergency department for any concerns or change in condition Med/Other Pt SpecificInfo: No Change to Meds Disposition: 01 DISCHARGE HOME Condition: Stable Nadia Stanley MD Feb 28, 2017 19:24
[2017-02-28] MEDS ORDERED: LABETALOL HCL 100 MG/20 ML VIAL IV PUSH ONE (19:30)
[2017-02-28] MEDS ORDERED: SODIUM CHLORIDE 0.9% FLUSH 10 ML FLUSH IVF PRN (19:30)
[2017-02-28] MEDS ORDERED: ONDANSETRON HCL 4 MG/2 ML VIAL IVP ONE (19:30)
[2017-02-28 20:10] LABS: BLOOD, URINE TRACE (NEG); GLUCOSE,URINE NEG (NEG); KETONE, URINE NEG (NEG); NITRITE,URINE NEG (NEG)
[2017-02-28 20:18] LABS: CHLORIDE 103 MEQ/L (98-107); RBC, URINE 0-3 /hpf (0-3); SODIUM (NA) 136 MEQ/L (136-145); SQUAMOUS EPITHELIAL CELL URINE 0-5 /hpf (0-5); URINE COLOR YELLOW (YELLW/STRAW)
[2017-02-28 20:22] LABS: ANION GAP 6 MEQ/L (5-15); BICARBONATE 27.3 MEQ/L (21.0-32.0); BLOOD UREA NITROGEN 8 MG/DL (7-18); MAGNESIUM 2.5 MG/DL (1.5-2.5)
[2017-02-28 20:25] LABS: GLOMERULAR FILTRATION RATE 120 ML/MIN (>89)
[2017-02-28 20:39] LABS: AUTOMATED NEUTROPHIL # 5.8 TH/MM3 (1.8-7.7); BASOPHIL # 0.1 TH/MM3 (0-0.2); BASOPHIL % 1.1 % (0.0-2.0); EOSINOPHIL # 0.2 TH/MM3 (0-0.4); EOSINOPHIL % 2.5 % (0.0-4.0); HEMATOCRIT 45.1 % (35.0-46.0); HEMO FLAGS DIFF FINAL; LYMPH % 30.4 % (9.0-44.0); LYMPHOCYTE # 2.9 TH/MM3 (1.0-4.8); MEAN CELL VOLUME 93.5 FL (80.0-100.0); MEAN CORPUSCULAR HEMOGLOBIN 31.7 PG (27.0-34.0); MEAN CORPUSCULAR HGB CONC 33.9 % (32.0-36.0); MONO % 5.5 % (0.0-8.0); NEUT % 60.5 % (16.0-70.0); PLATELET COUNT 283 TH/MM3 (150-450); RED BLOOD COUNT 4.82 MIL/MM3 (4.00-5.30); RED CELL DISTRIBUTION WIDTH 13.2 % (11.6-17.2); WHITE BLOOD COUNT 9.5 TH/MM3 (4.0-11.0)
[2017-02-28 20:45] LABS: ALCOHOL LESS THAN 3 MG/DL (0-5); CREATINE KINASE 73 U/L (26-192)
[2017-02-28] MEDS ORDERED: ACETAMINOPHEN/HYDROcodone 325 MG/10 MG TAB PO ONE (21:30)
--- NOTE | 2017-03-01 19:11 | EKG ---
Date Performed: 02/28/2017 Time Performed: 19:32:29 PTAGE: 61 years EKG: Sinus rhythm POSSIBLE LEFT ATRIAL ENLARGEMENT Since previous tracing, no significant change noted BORDERLINE ECG PREVIOUS TRACING : 02/25/2017 17.22 DOCTOR: Omid Bullard Interpretating Date/Time 03/01/2017 19:09:56
== END 2017-02-28 22:02 | disposition home or self-care (01) ==
LOC: PHED 18:29
DX: I10 Essential (primary) hypertension (principal); F41.9 Anxiety disorder, unspecified; R94.31 Abnormal electrocardiogram [ECG] [EKG]; Z79.899 Other long term (current) drug therapy; F17.210 Nicotine dependence, cigarettes, uncomplicated
CPT/HCPCS: 80048; 80307; 81001; 82550; 83735; 84484; 85025; 93005; 96374; 96375; 99284; J2405

== ENCOUNTER 2017-07-17 15:02 | Emergency (ER) | payer OTHER ==
[~2017-07-17] VITALS: Ht 157.5 cm; Wt 47.6 kg
[2017-07-17 15:11] VITALS: BP 139/78; PULSE 80; RESP 18; TEMP 99.5; O2SAT 96
[2017-07-17] MEDS ORDERED: SERT-132 PO (16:46)
[2017-07-17] MEDS ORDERED: BETH10TA2 PO (16:46)
--- NOTE | 2017-07-17 16:52 | PD ---
HPI Chief Complaint: GI Complaint Time Seen by Provider: 16:43 Travel History International Travel<30 days: No Contact w/Intl Traveler<30days: No Traveled to known affect area: No History of Present Illness HPI Patient 61-year-old female presents emergency department for evaluation of vomiting and diarrhea over the past month, she has been seen by a devops architect and has been scheduled for an endoscopy later this month. She states the pain is not particularly more severe today but she just could not tolerate it any longer she decided to come to the emergency department to be seen. She states she is only been taking Tums at home with minimal relief. She is unsure as to cause of the pain as of yet. Denies any bloody emesis bloody diarrhea denies any biliary emesis. Denies any chest pain shortness of breath. States symptoms for the past 2 months, waxing and waning, associated signs and symptoms as above, cannot identify any alleviating or exacerbating factors PFSH Past Medical History Hx Anticoagulant Therapy: No Arthritis: Yes Asthma: No Autoimmune Disease: No Blood Disorders: No Anxiety: Yes Depression: Yes Heart Rhythm Problems: No Cancer: No Cardiovascular Problems: Yes (HTN) High Cholesterol: Yes Chemotherapy: No Chest Pain: Yes Congestive Heart Failure: No COPD: Yes Cerebrovascular Accident: No Diabetes: No Diminished Hearing: No Diverticulitis: Yes Endocrine: No Gastrointestinal Disorders: Yes (GERD) GERD: Yes Glaucoma: No Genitourinary: No Headaches: Yes Hepatitis: No Hiatal Hernia: No Hypertension: Yes Immune Disorder: No Implanted Vascular Access Dvce: No Kidney Stones: No Musculoskeletal: Yes (CHRONIC BACK AND LEG PAIN, L ROTATOR CUFF INJURY) Neurologic: Yes (HEADACHES) Psychiatric: Yes Reproductive: No Respiratory: Yes (COPD) Immunizations Current: Yes Myocardial Infarction: No Radiation Therapy: No Renal Failure: No Seizures: No Sickle Cell Disease: No Sleep Apnea: No Thyroid Disease: Yes (HYPOTHYROIDISM) Triglycerides - High: Yes Ulcer: No : 0 Past Surgical History Abdominal Surgery: Yes (ADHESIONLYSIS) AICD: No Appendectomy: Yes Cardiac Surgery: No Cholecystectomy: Yes Ear Surgery: No Endocrine Surgery: No Eye Surgery: No Genitourinary Surgery: No Gynecologic Surgery: Yes (HYSTERECTOMY) Hysterectomy: Yes Insulin Pump: No Joint Replacement: No Neurologic Surgery: No Oral Surgery: No Pacemaker: No Thoracic Surgery: Yes (GALL BLADDER REMOVED 1995) Other Surgery: Yes (ADHESIONS on liver and stomach) Family History Family Myocardial Infarction: Yes Social History Alcohol Use: No Tobacco Use: Yes (1PPD) Substance Use: No Allergies-Medications (Allergen,Severity, Reaction): Coded Allergies: Fish Containing Products (Unverified Allergy, Severe, Anaphylaxis, 07/17/17) erythromycin base (Unverified Allergy, Intermediate, "facial swelling", 07/17/17) penicillin G (Unverified Allergy, Intermediate, "facial swelling", 07/17/17) hydromorphone (Unverified Adverse Reaction, Severe, Nausea/Vomiting, ) headache, diarrhea ibuprofen (Unverified Adverse Reaction, Intermediate, NAUSEA, facial swelling, 07/17/17) Reported Meds & Prescriptions Reported Meds & Active Scripts Active Zofran (Ondansetron HCl) 4 Mg Tab 4 Mg PO Q6HR PRN Reported Sertraline (Sertraline HCl) 50 Mg Tab 50 Mg PO DAILY Bethanechol 10 Mg Tab 10 Mg PO Q8HR Zantac (Ranitidine HCl) 150 Mg Tab 150 Mg PO BID Lisinopril 40 Mg Tab 40 Mg PO DAILY Proair Hfa 8.5 GM Inh (Albuterol Sulfate) 90 Mcg/Act Aer 1 Puff INH Q4H PRN 108 mcg/actuation Lyrica (Pregabalin) 75 Mg Cap 75 Mg PO DAILY Lovastatin 10 Mg Tab 10 Mg PO DAILY Levothyroxine (Levothyroxine Sodium) 75 Mcg Tab 75 Mcg PO DAILY Propranolol (Propranolol HCl) 10 Mg Tab 10 Mg PO Q12HR Mobic (Meloxicam) 15 Mg Tab 15 Mg PO BID Hydrocodone-Acetaminophen 10-325 mg Tab 1 Tab PO Q6H PRN Review of Systems Except as stated in HPI: all other systems reviewed are Neg Physical Exam Narrative GENERAL: Well-developed well-nourished no obvious distress SKIN: Focused skin assessment warm/dry. HEAD: Atraumatic. Normocephalic. EYES: Pupils equal and round. No scleral icterus. No injection or drainage. ENT: No nasal bleeding or discharge. Mucous membranes pink and moist. NECK: Trachea midline. No JVD. CARDIOVASCULAR: Regular rate and rhythm. No murmur appreciated. RESPIRATORY: No accessory muscle use. Clear to auscultation. Breath sounds equal bilaterally. GASTROINTESTINAL: Abdomen soft, non-tender, nondistended. Hepatic and splenic margins not palpable. No rebound no percussive tenderness. No CVA tenderness. Rodriguez's and Rovsing sign negative, psoas and obturator signs negative. MUSCULOSKELETAL: No obvious deformities. No clubbing. No cyanosis. No edema. NEUROLOGICAL: Awake and alert. No obvious cranial nerve deficits. Motor grossly within normal limits. Normal speech. PSYCHIATRIC: Appropriate mood and affect; insight and judgment normal. Data Data Last Documented VS Vital Signs Date Time Temp Pulse Resp B/P (MAP) Pulse Ox O2 Delivery O2 Flow Rate FiO2 07/17/17 18:05 71 16 156/79 (104) 97 07/17/17 15:11 99.5 Orders Orders Complete Blood Count With Diff (07/17/17 16:47) Comprehensive Metabolic Panel (07/17/17 16:47) Lipase (07/17/17 16:47) Ct Abd/Pel W/O Iv Contrast (07/17/17 16:47) Iv Access Insert/Monitor (07/17/17 16:47) Ecg Monitoring (07/17/17 16:47) Oximetry (07/17/17 16:47) Sodium Chloride 0.9% Flush (Ns Flush) (07/17/17 17:00) Acetamin-Hydrocod 325-5 Mg ([place] 5-325 (07/17/17 17:00) Sodium Chlorid 0.9% 500 Ml Inj (Ns 500 M (07/17/17 17:00) Ondansetron Inj (Zofran Inj) (07/17/17 17:00) Ed Discharge Order (07/17/17 17:53) Labs Laboratory Tests Test 07/17/17 17:00 White Blood Count 8.1 TH/MM3 Red Blood Count 4.69 MIL/MM3 Hemoglobin 14.5 GM/DL Hematocrit 44.1 % Mean Corpuscular Volume 94.1 FL Mean Corpuscular Hemoglobin 31.0 PG Mean Corpuscular Hemoglobin Concent 32.9 % Red Cell Distribution Width 12.1 % Platelet Count 290 TH/MM3 Mean Platelet Volume 8.2 FL Neutrophils (%) (Auto) 65.7 % Lymphocytes (%) (Auto) 26.0 % Monocytes (%) (Auto) 6.3 % Eosinophils (%) (Auto) 1.1 % Basophils (%) (Auto) 0.9 % Neutrophils # (Auto) 5.3 TH/MM3 Lymphocytes # (Auto) 2.1 TH/MM3 Monocytes # (Auto) 0.5 TH/MM3 Eosinophils # (Auto) 0.1 TH/MM3 Basophils # (Auto) 0.1 TH/MM3 CBC Comment DIFF FINAL Differential Comment Blood Urea Nitrogen 8 MG/DL Creatinine 0.60 MG/DL Random Glucose 94 MG/DL Total Protein 7.5 GM/DL Albumin 4.0 GM/DL Calcium Level 9.2 MG/DL Alkaline Phosphatase 61 U/L Aspartate Amino Transf (AST/SGOT) 12 U/L Alanine Aminotransferase (ALT/SGPT) 15 U/L Total Bilirubin 0.3 MG/DL Sodium Level 134 MEQ/L Potassium Level 4.0 MEQ/L Chloride Level 100 MEQ/L Carbon Dioxide Level 28.1 MEQ/L Anion Gap 6 MEQ/L Estimat Glomerular Filtration Rate 102 ML/MIN Lipase 149 U/L MDM Medical Decision Making Medical Screen Exam Complete: Yes Emergency Medical Condition: Yes Differential Diagnosis Acute on chronic abdominal pain, peptic ulcer disease, reflux, pancreatitis, cholecystitis, gastritis, gastroenteritis Narrative Course Patient room to the emergency department, blood work is unremarkable, CBC and CMP as well as lipase. Patient quite concerned and given her age think that a CT abdomen is indicated she has not had one in some time. Shows no acute findings. She was reassured, she is feeling better after medications given. She is stable for discharge. No indication further workup this time. On my reassessment her abdomen is benign. She stable for discharge to follow-up with her devops architect as scheduled Diagnosis Primary Impression: Abdominal pain Med/Other Pt SpecificInfo: Prescription(s) given Scripts Ondansetron (Zofran) 4 Mg Tab 4 MG PO Q6HR Y for NAUSEA OR VOMITING, #20 TAB 0 Refills Prov: Fabian Jasso MD 07/17/17 Disposition: 01 DISCHARGE HOME Condition: Stable Fabian Jasso MD Jul 17, 2017 16:52
[2017-07-17] MEDS ORDERED: ONDANSETRON HCL 4 MG/2 ML VIAL IV PUSH ONE (17:00)
[2017-07-17] MEDS ORDERED: SODIUM CHLORIDE 0.9% FLUSH 10 ML FLUSH IV FLUSH PRN (17:00)
[2017-07-17] MEDS ORDERED: SODIUM CHLORID 0.9% 500 ML INJ 500 ML IV ONE (17:00)
[2017-07-17] MEDS ORDERED: ACETAMINOPHEN/HYDROcodone 325 MG/5 MG TAB PO ONE (17:00)
[2017-07-17 17:13] LABS: AUTOMATED NEUTROPHIL # 5.3 TH/MM3 (1.8-7.7); BASOPHIL # 0.1 TH/MM3 (0-0.2); BASOPHIL % 0.9 % (0.0-2.0); EOSINOPHIL # 0.1 TH/MM3 (0-0.4); EOSINOPHIL % 1.1 % (0.0-4.0); HEMATOCRIT 44.1 % (35.0-46.0); HEMOGLOBIN 14.5 GM/DL (11.6-15.3); LYMPHOCYTE # 2.1 TH/MM3 (1.0-4.8); MEAN CELL VOLUME 94.1 FL (80.0-100.0); MEAN CORPUSCULAR HGB CONC 32.9 % (32.0-36.0); MEAN PLATELET VOLUME 8.2 FL (7.0-11.0); MONO % 6.3 % (0.0-8.0); MONOCYTE # 0.5 TH/MM3 (0-0.9); NEUT % 65.7 % (16.0-70.0); PLATELET COUNT 290 TH/MM3 (150-450); RED BLOOD COUNT 4.69 MIL/MM3 (4.00-5.30); RED CELL DISTRIBUTION WIDTH 12.1 % (11.6-17.2); WHITE BLOOD COUNT 8.1 TH/MM3 (4.0-11.0)
[2017-07-17 17:22] LABS: CHLORIDE 100 MEQ/L (98-107); SODIUM (NA) 134 MEQ/L (136-145)
[2017-07-17 17:26] LABS: BICARBONATE 28.1 MEQ/L (21.0-32.0); BLOOD UREA NITROGEN 8 MG/DL (7-18); CALCIUM 9.2 MG/DL (8.5-10.1); GLUCOSE,RANDOM 94 MG/DL (74-106)
[2017-07-17 17:29] LABS: ALT (GPT) 15 U/L (10-53); AST (GOT) 12 U/L (15-37); GLOMERULAR FILTRATION RATE 102 ML/MIN (>89)
[2017-07-17 17:30] LABS: TOTAL BILIRUBIN ADULT 0.3 MG/DL (0.2-1.0); TOTAL PROTEIN 7.5 GM/DL (6.4-8.2)
[2017-07-17 17:32] LABS: ALKALINE PHOSPHATASE 61 U/L (45-117)
--- NOTE | 2017-07-17 17:52 | RADRPT ---
EXAM DATE/TIME: 07/17/2017 17:34 [place] COMPARISON: No previous studies available for comparison. INDICATIONS : Nausea, vomiting, and diarrhea. ORAL CONTRAST: No oral contrast ingested. RADIATION DOSE: 4.68 CTDIvol (mGy) MEDICAL HISTORY : Hypertension. Chronic obstructive pulmonary disease. Gastroesophageal reflux disease. SURGICAL HISTORY : Appendectomy. Cholecystectomy.Hysterectomy. ENCOUNTER: Initial ACUITY: 1 month PAIN SCALE: 0/10 LOCATION: pelvis abdomen TECHNIQUE: Volumetric scanning of the abdomen and pelvis was performed. Using automated exposure control and ad justment of the mA and/or kV according to patient size, radiation dose was kept as low as reasonably achievable to obtain optimal diagnostic quality images. DICOM format image data is available electro nically for review and comparison. FINDINGS: Lung bases are clear. No acute findings in the liver, spleen, adrenals, kidneys or pancreas. Previous cholecystectomy. There is colonic diverticulosis without evidence for diverticulitis. No obstruction, free fluid or fr ee air. No adenopathy. CONCLUSION: 1. Colonic diverticulosis without diverticulitis. No acute findings. Previous cholecystectomy. Francisco Vargas MD on July 17, 2017 at 17:43 Board Certified Radiologist. This report was verified electronically.
[2017-07-17] MEDS ORDERED: ZOFR4TAB PO (17:56)
[2017-07-17 18:05] VITALS: BP 156/79
== END 2017-07-17 18:15 | disposition home or self-care (01) ==
LOC: PHED 15:02
DX: K57.30 Diverticulosis of large intestine without perforation or abscess without bleeding (principal); M19.90 Unspecified osteoarthritis, unspecified site; F41.9 Anxiety disorder, unspecified; I10 Essential (primary) hypertension; E78.00 Pure hypercholesterolemia, unspecified; J44.9 Chronic obstructive pulmonary disease, unspecified; K21.9 Gastro-esophageal reflux disease without esophagitis; E03.9 Hypothyroidism, unspecified; F32.9 Major depressive disorder, single episode, unspecified
CPT/HCPCS: 74176; 80053; 83690; 85025; 96374; 99284; J2405; J7040

== ENCOUNTER 2017-09-11 22:46 | Emergency (ER) | payer OTHER ==
[~2017-09-11] VITALS: Ht 157.5 cm; Wt 45.8 kg
[~2017-09-11 22:46] MED LIST changes: -AMLO5 PO; +BETH10TA2 PO; -CYCL5TAB PO; -PARO10TA2 PO; -PROM25TA10 PO; +SERT-132 PO; +ZOFR4TAB PO; -ZOFR4TAB3 SL
[2017-09-11] MEDS ORDERED: IOHEXOL 350 MG/ML 10 ML VIAL (for RAD DIAG) IVCONTRAST ONE (22:47)
[2017-09-11 22:59] VITALS: BP 167/79; PULSE 80; RESP 17; TEMP 98.3; O2SAT 99
[2017-09-11 23:36] VITALS: O2SAT 98
[2017-09-11 23:39] LABS: BILIRUBIN, URINE NEG (NEG); BLOOD, URINE NEG (NEG); GLUCOSE,URINE NEG (NEG); KETONE, URINE NEG (NEG); NITRITE,URINE NEG (NEG); URINE COLOR COLORLESS (YELLW/STRAW); URINE LEUKOCYTE ESTERASE NEG (NEG)
[2017-09-11 23:40] LABS: BASOPHIL % 0.4 % (0.0-2.0); EOSINOPHIL # 0.3 TH/MM3 (0-0.4); EOSINOPHIL % 2.7 % (0.0-4.0); HEMOGLOBIN 13.9 GM/DL (11.6-15.3); LYMPH % 31.7 % (9.0-44.0); LYMPHOCYTE # 3.3 TH/MM3 (1.0-4.8); MEAN CELL VOLUME 93.1 FL (80.0-100.0); MEAN CORPUSCULAR HEMOGLOBIN 32.2 PG (27.0-34.0); MEAN CORPUSCULAR HGB CONC 34.6 % (32.0-36.0); MEAN PLATELET VOLUME 8.1 FL (7.0-11.0); MONO % 7.6 % (0.0-8.0); MONOCYTE # 0.8 TH/MM3 (0-0.9); NEUT % 57.6 % (16.0-70.0); PLATELET COUNT 368 TH/MM3 (150-450); RED CELL DISTRIBUTION WIDTH 12.8 % (11.6-17.2); WHITE BLOOD COUNT 10.5 TH/MM3 (4.0-11.0)
--- NOTE | 2017-09-11 23:53 | PD ---
HPI Chief Complaint: Abdominal Pain Time Seen by Provider: 23:11 Travel History International Travel<30 days: No Contact w/Intl Traveler<30days: No Traveled to known affect area: No History of Present Illness HPI The patient is a 61 year old female who presents to the [facility] emergency department with a history of generalized abdominal pain associated with nausea and intermittent vomiting that is been present for the last 4-5 months. She reports that initially she was having diarrhea, however now she just has constipation. She did move her bowels regularly this morning. She denies having any blood in her stool or black or tarry stools. She reports that she has been diagnosed with gastroparesis, diverticulosis, and duodenal ulcers. She reports that she did see her GI doctor in [place] recently regarding the symptoms and underwent upper endoscopy. She reports that she was told she still has duodenal ulcers and her medication for treatment. The patient reports that she had been on Reglan for 15 years, however this was discontinued by her shore working supervisor. From reviewing the record it was discontinued due to concerns for possible extrapyramidal side effects and cardiac side effects. She was started on bethanechol, however she reports that this did not help. The patient reports that she has had weight loss, however she is unsure exactly how much, she denies having any abdominal imaging related to these symptoms. On review of systems otherwise, the patient denies having any known cough or congestion, neck pain, chest pain, shortness of breath, or neurologic symptoms. She denies having any dysuria or urine however she does report having urinary frequency. [facility] Past Medical History Narrative Medical The patient's past medical history is significant for arthritis, anxiety disorder, osteoporosis, dyslipidemia, hypertension, diverticulosis, history of duodenal ulcers, history of gastroparesis, history of chronic pain syndrome Hx Anticoagulant Therapy: No Arthritis: Yes Asthma: No Autoimmune Disease: No Blood Disorders: No Anxiety: Yes Depression: Yes Heart Rhythm Problems: No Cancer: No Cardiovascular Problems: Yes (HTN, ) High Cholesterol: Yes Chemotherapy: No Chest Pain: Yes Congestive Heart Failure: No COPD: Yes Cerebrovascular Accident: No Diabetes: No Diminished Hearing: No Diverticulitis: Yes Endocrine: No Gastrointestinal Disorders: Yes (GERD, gastroparesis) GERD: Yes Glaucoma: No Genitourinary: No Headaches: Yes Hepatitis: No Hiatal Hernia: No Hypertension: Yes Immune Disorder: No Implanted Vascular Access Dvce: No Kidney Stones: No Musculoskeletal: Yes (CHRONIC BACK AND LEG PAIN, L ROTATOR CUFF INJURY, OSTEOPOROSIS) Neurologic: Yes (HEADACHES) Psychiatric: Yes Reproductive: No Respiratory: Yes (COPD) Immunizations Current: Yes Myocardial Infarction: No Radiation Therapy: No Renal Failure: No Seizures: No Sickle Cell Disease: No Sleep Apnea: No Thyroid Disease: Yes (HYPOTHYROIDISM) Triglycerides - High: Yes Ulcer: No Tetanus Vaccination: Unknown Influenza Vaccination: No ?: Not : 0 Past Surgical History Narrative Surgical The patient's past surgical history is significant for adhesion lysis, cholecystectomy, appendectomy, hysterectomy. Abdominal Surgery: Yes (ADHESIONLYSIS) Appendectomy: Yes Cardiac Surgery: No Cholecystectomy: Yes Ear Surgery: No Endocrine Surgery: No Eye Surgery: No Genitourinary Surgery: No Gynecologic Surgery: Yes (HYSTERECTOMY) Hysterectomy: Yes Insulin Pump: No Joint Replacement: No Neurologic Surgery: No Oral Surgery: No Pacemaker: No Thoracic Surgery: Yes (GALL BLADDER REMOVED 1995) Other Surgery: Yes (ADHESIONS on liver and stomach) Family History Family Myocardial Infarction: Yes Social History Alcohol Use: No Tobacco Use: Yes (1PPD) Substance Use: No Allergies-Medications (Allergen,Severity, Reaction): Coded Allergies: Fish Containing Products (Unverified Allergy, Severe, Anaphylaxis, 07/17/17) erythromycin base (Unverified Allergy, Intermediate, "facial swelling", 07/17/17) penicillin G (Unverified Allergy, Intermediate, "facial swelling", 07/17/17) hydromorphone (Unverified Adverse Reaction, Severe, Nausea/Vomiting, ) headache, diarrhea ibuprofen (Unverified Adverse Reaction, Intermediate, NAUSEA, facial swelling, 07/17/17) Reported Meds & Prescriptions Reported Meds & Active Scripts Active Phenergan Supp (Promethazine HCl) 12.5 Mg Supp 12.5 Mg RECTAL Q6H PRN Levsin-SL (Hyoscyamine Sulfate) 0.125 Mg Subl 0.125 Mg SL Q6H PRN Zofran (Ondansetron HCl) 4 Mg Tab 4 Mg PO Q6HR PRN Reported Sertraline (Sertraline HCl) 50 Mg Tab 50 Mg PO DAILY Bethanechol 10 Mg Tab 10 Mg PO Q8HR Zantac (Ranitidine HCl) 150 Mg Tab 150 Mg PO BID Lisinopril 40 Mg Tab 40 Mg PO DAILY Proair Hfa 8.5 GM Inh (Albuterol Sulfate) 90 Mcg/Act Aer 1 Puff INH Q4H PRN 108 mcg/actuation Lyrica (Pregabalin) 75 Mg Cap 75 Mg PO DAILY Lovastatin 10 Mg Tab 10 Mg PO DAILY Levothyroxine (Levothyroxine Sodium) 75 Mcg Tab 75 Mcg PO DAILY Propranolol (Propranolol HCl) 10 Mg Tab 10 Mg PO Q12HR Mobic (Meloxicam) 15 Mg Tab 15 Mg PO BID Hydrocodone-Acetaminophen 10-325 mg Tab 1 Tab PO Q6H PRN Review of Systems Except as stated in HPI: all other systems reviewed are Neg General / Constitutional: Positive: Weight Loss, No: Fever Eyes: No: Visual changes HENT: No: Headaches Cardiovascular: No: Chest Pain or Discomfort Respiratory: No: Shortness of Breath Gastrointestinal: Positive: Nausea, Vomiting, Diarrhea, Abdominal Pain, Constipation, Changes in Bowel Habits, Indigestion, Loss of Appetite, No: Hematemesis, Hematochezia Genitourinary: No: Dysuria Musculoskeletal: No: Pain Skin: No Rash Neurologic: No: Weakness Psychiatric: No: Depression Endocrine: No: Polydipsia Hematologic/Lymphatic: No: Easy Bruising Physical Exam Narrative General: The patient is a well-developed well-nourished female in no acute distress. Head and Neck exam: Head is normocephalic atraumatic. Eyes: EOMI, pupils are equal round and reactive to light. Nose: Midline septum with pink mucous membranes Mouth: Dentition unremarkable. Moist mucus membranes. Posterior oropharynx is not erythematous. No tonsillar hypertrophy. Uvula midline. Airway patent. Neck: No palpable lymphadenopathy. No nuchal rigidity. No thyromegaly. Cardiovascular: Regular rate and rhythm without murmurs, gallops, or rubs. No pulse deficit to the extremities on simultaneous auscultation and palpation of her radial artery. Lungs: Clear to auscultation bilaterally. No wheezes, rhonchi, or rales. Abdomen: Soft, with tenderness on palpation of the right upper quadrant of the abdomen, and left lower quadrant of the abdomen, however she does report tenderness on palpation of all sites, however these 2 locations are their worst points of tenderness on palpation. No guarding, rebound, or rigidity. No tenderness on palpation over McBurney's point, negative Rodriguez sign. Normal bowel sounds are audible. Extremities: No clubbing, cyanosis, or edema. 2+ pulses in all 4 extremities. No calf tenderness on palpation. Back: No costovertebral angle tenderness to palpation. Neurologic Exam: Grossly nonfocal Skin Exam: No rash noted. Intact skin that is warm and dry. Data Data Last Documented VS Vital Signs Date Time Temp Pulse Resp B/P (MAP) Pulse Ox O2 Delivery O2 Flow Rate FiO2 09/12/17 01:00 66 16 131/73 (92) 97 Room Air 09/11/17 22:59 98.3 Orders Orders Electrocardiogram (09/11/17 23:17) Complete Blood Count With Diff (09/11/17 23:17) Comprehensive Metabolic Panel (09/11/17 23:17) Creatine Kinase (Cpk) (09/11/17 23:17) Ckmb (Isoenzyme) Profile (09/11/17 23:17) Troponin I (09/11/17 23:17) Prothrombin Time / Inr (Pt) (09/11/17 23:17) Act Partial Throm Time (Ptt) (09/11/17 23:17) Lipase (09/11/17 23:17) Urinalysis - C+S If Indicated (09/11/17 23:17) Chest, Single Ap (09/11/17 23:17) Iv Access Insert/Monitor (09/11/17 23:17) Ecg Monitoring (09/11/17 23:17) Oximetry (09/11/17 23:17) Lactic Acid (09/11/17 23:17) Sodium Chlor 0.9% 1000 Ml Inj (Ns 1000 M (09/12/17 00:00) Prochlorperazine Inj (Compazine Inj) (09/12/17 00:00) Ct Abd/Pel W Iv Contrast(Rout) (09/12/17 ) Iohexol 350 Inj (Omnipaque 350 Inj) (09/11/17 22:47) Potassium Chloride (Kcl) (09/12/17 01:30) Labs Laboratory Tests Test 09/11/17 23:30 09/11/17 23:58 White Blood Count 10.5 TH/MM3 Red Blood Count 4.30 MIL/MM3 Hemoglobin 13.9 GM/DL Hematocrit 40.0 % Mean Corpuscular Volume 93.1 FL Mean Corpuscular Hemoglobin 32.2 PG Mean Corpuscular Hemoglobin Concent 34.6 % Red Cell Distribution Width 12.8 % Platelet Count 368 TH/MM3 Mean Platelet Volume 8.1 FL Neutrophils (%) (Auto) 57.6 % Lymphocytes (%) (Auto) 31.7 % Monocytes (%) (Auto) 7.6 % Eosinophils (%) (Auto) 2.7 % Basophils (%) (Auto) 0.4 % Neutrophils # (Auto) 6.0 TH/MM3 Lymphocytes # (Auto) 3.3 TH/MM3 Monocytes # (Auto) 0.8 TH/MM3 Eosinophils # (Auto) 0.3 TH/MM3 Basophils # (Auto) 0.0 TH/MM3 CBC Comment DIFF FINAL Differential Comment Prothrombin Time 10.0 SEC Prothromb Time International Ratio 1.0 RATIO Activated Partial Thromboplast Time 26.9 SEC Urine Color COLORLESS Urine Turbidity CLEAR Urine pH 7.0 Urine Specific [place] 1.001 Urine Protein NEG mg/dL Urine Glucose (UA) NEG mg/dL Urine Ketones NEG mg/dL Urine Occult Blood NEG Urine Nitrite NEG Urine Bilirubin NEG Urine Urobilinogen LESS THAN 2.0 MG/DL Urine Leukocyte Esterase NEG Microscopic Urinalysis Comment CULT NOT INDICATED Lactic Acid Level 1.1 mmol/L Blood Urea Nitrogen 4 MG/DL Creatinine 0.50 MG/DL Random Glucose 97 MG/DL Total Protein 6.9 GM/DL Albumin 3.8 GM/DL Calcium Level 9.2 MG/DL Alkaline Phosphatase 58 U/L Aspartate Amino Transf (AST/SGOT) 11 U/L Alanine Aminotransferase (ALT/SGPT) 16 U/L Total Bilirubin 0.3 MG/DL Sodium Level 138 MEQ/L Potassium Level 3.3 MEQ/L Chloride Level 103 MEQ/L Carbon Dioxide Level 25.0 MEQ/L Anion Gap 10 MEQ/L Estimat Glomerular Filtration Rate 126 ML/MIN Total Creatine Kinase 74 U/L Troponin I LESS THAN 0.02 NG/ML Lipase 109 U/L MDM Medical Decision Making Medical Screen Exam Complete: Yes Emergency Medical Condition: Yes Medical Record Reviewed: Yes Differential Diagnosis Bowel obstruction, versus diverticulitis, versus exacerbation of gastroparesis Narrative Course During the course of the patient's emergency department visit, the patient's history, examination, and differential diagnosis were reviewed with the patient. The patient was placed on a hospital monitor with oximetry and frequent blood pressure monitoring. The patient had IV access obtained and blood work sent for analysis. The patient had an EKG done on arrival that shows a sinus rhythm heart rate of 60 patient is noted. T waves are inverted in V1, V2. The patient was initially provided normal saline 1 L IV fluid bolus, Compazine 5 mg IV for nausea. The patient's laboratory studies were reviewed and remarkable for a CBC that is within normal limits, CMP is remarkable for potassium 3.3 which was supplemented orally, lactic acid 1.1, BUN 4, AST 11, cardiac enzymes within normal limits, lipase 109, PT 10, PTT 26.9. Urinalysis is within normal limits Radiology studies were reviewed and remarkable for a chest x-ray shows no acute intrathoracic disease, CT scan of the abdomen and pelvis shows stable and unremarkable CT scan of the abdomen and pelvis compared to prior exams, stable diverticulosis of the sigmoid colon without inflammatory changes. The patient reports that she has been referred to [facility] for additional evaluation, second opinion by another shore working supervisor, she has as previously recommended by her shore working supervisor. In the meantime the patient was given a prescription for Levsin to be taken as needed for abdominal pain and Phenergan suppositories to be used as needed for persistent nausea. The patient is resting comfortably and feels better, is alert and in no distress. The patient's results and examination findings were discussed with the patient. The repeat examination is unremarkable and benign. The history, exam, diagnostic testing, and current condition do not suggest any significant pathology to warrant further testing, continued ED treatment, admission, or surgical evaluation at this point. The vital signs have been stable. The patient does not have uncontrollable pain, intractable vomiting, or other significant symptoms. The patient's condition is stable and appropriate for discharge. The patient will pursue further outpatient evaluation with a primary care physician or other designated or consulting physician as indicated in the discharge instructions. The patient is instructed to report back to the emergency department immediately for reexamination in the mean time if he/ she develops any new or worsening signs or symptoms. The patient expressed understanding and was agreeable with this plan. Diagnosis Primary Impression: Abdominal pain Qualified Codes: R10.84 - Generalized abdominal pain Additional Impression: Weight loss Referrals: Substation Operator Helper 1 week Primary Care Physician 2 days Patient Instructions: Abdominal Pain (ED), General Instructions Med/Other Pt SpecificInfo: Prescription(s) given Scripts Promethazine Supp (Phenergan Supp) 12.5 Mg Supp 12.5 MG RECTAL Q6H Y for NAUSEA OR VOMITING, #3 SUPP 0 Refills Prov: Johanne Bullard MD 09/12/17 Hyoscyamine Odt (Levsin-SL) 0.125 Mg Subl 0.125 MG SL Q6H Y for PAIN SCALE 5 TO 10, #12 TAB.SL 0 Refills Prov: Johanne Bullard MD 09/12/17 Disposition: 01 DISCHARGE HOME Condition: Stable Johanne Bullard MD Sep 11, 2017 23:53
--- NOTE | 2017-09-11 23:53 | RADRPT ---
EXAM DATE: 09/11/2017 11:48 PM EDT AGE/SEX: 61 years / Female INDICATIONS: Abdominal pain. CLINICAL DATA: This is the patient's initial encounter. Patient reports that signs and symptoms have been present for 1 day and indicates a pain score of 3/10. MEDICAL/SURGICAL HISTORY: Hypertension. Chronic obstructive pulmonary disease. Gastroesophage al reflux disease. Appendectomy. Cholecystectomy. Hysterectomy. COMPARISON: [facility], CHEST SINGLE AP, 02/19/2017. . FINDINGS: A single AP view of the chest demonstrates the lungs to be symmetrically aerated without evidence of mass, infiltrate or effusion. There is hyperaeration of both lung lamb. The cardiomediastinal conto urs are unremarkable. Osseous structures are intact. CONCLUSION: No acute intrathoracic disease. Stable exam. Electronically signed by: Titus Berry MD 09/11/2017 11:51 PM EDT
[2017-09-12] MEDS ORDERED: PROCHLORPERAZINE INJ 10 MG/2 ML VIAL IV PUSH ONE
[2017-09-12] MEDS ORDERED: SODIUM CHLOR 0.9% 1000 ML INJ 1,000 ML IV ONE
[2017-09-12 00:22] LABS: ALBUMIN 3.8 GM/DL (3.4-5.0); ALT (GPT) 16 U/L (10-53); AST (GOT) 11 U/L (15-37); BLOOD UREA NITROGEN 4 MG/DL (7-18); CALCIUM 9.2 MG/DL (8.5-10.1); CHLORIDE 103 MEQ/L (98-107); GLOMERULAR FILTRATION RATE 126 ML/MIN (>89); GLUCOSE,RANDOM 97 MG/DL (74-106); SODIUM (NA) 138 MEQ/L (136-145)
[2017-09-12 00:25] LABS: ALKALINE PHOSPHATASE 58 U/L (45-117); TOTAL BILIRUBIN ADULT 0.3 MG/DL (0.2-1.0); TOTAL PROTEIN 6.9 GM/DL (6.4-8.2); TROPONIN I LESS THAN 0.02 NG/ML (0.02-0.05)
[2017-09-12 01:00] VITALS: BP 131/73; PULSE 66; RESP 16; O2SAT 97
--- NOTE | 2017-09-12 01:28 | RADRPT ---
EXAM DATE: 09/12/2017 1:23 AM EDT AGE/SEX: 61 years / Female INDICATIONS: Generalized abdominal pain, nausea and intermittent vomiting for the last for to five m onths. CLINICAL DATA: This is the patient's initial encounter. Patient reports that signs and symptoms have been present for 4 - 6 months and indicates a pain score of 3/10. MEDICAL/SURGICAL HISTORY: Gastroesophageal reflux disease. Diverticulitis. Chronic obstructiv e pulmonary disease. Duodenal ulcers, gastroparesis, hypertension. Appendectomy. Cholecystectomy. Hysterectomy. Adhesionlysis. ORAL CONTRAST: No oral contrast ingested. RADIATION DOSE: 4.50 CTDI (mGy) COMPARISON: [facility], CT ABDOMEN & PELVIS W/O CONTRAST, 07/17/2017. . TECHNIQUE: Multiple contiguous axial images were obtained through the abdomen and pelvis following b olus infusion of 90 ml Omnipaque 350 (iohexol) nonionic water-soluble contrast as a single exam dos e. No oral contrast ingested. Using automated exposure control and adjustment of the mA and/or kV ac cording to patient size, the radiation dose was kept as low as reasonably achievable to obtain optima l diagnostic quality images. FINDINGS: Lower Lungs: The visualized lower lungs are clear. Liver: The liver has a homogeneous density without space-occupying lesion. There is no dilation of th e biliary tree. The gallbladder has been surgically removed. Spleen: Homogeneous density without enlargement. Pancreas: Unremarkable without mass or calcification. Kidneys: Normal in size and shape. No evidence of mass or hydronephrosis. Adrenal Glands: Unremarkable. Aorta: The aorta and proximal iliac vessels are grossly unremarkable without aneurysmal dilation. Bowel/Mesentery: The bowel loops are grossly unremarkable. The cecum and sigmoid colon have a normal configuration. The appendix is unremarkable. There is some diverticulosis of the sigmoid colon witho ut definite inflammatory changes. No significant changes compared to the prior study. Abdominal Wall: Intact. Retroperitoneum: No evidence of adenopathy in the retrocrural, para-aortic, or deep pelvic regions. Bladder: Contours are smooth. Reproductive Organs: No abnormal masses or calcifications seen. Inguinal: The inguinal region is unremarkable without evidence of adenopathy. Bony Structures: Primary degenerative changes. No significant change compared to the prior study. CONCLUSION: 1. Stable and unremarkable CT scan of the abdomen and pelvis compared to the prior examination. 2. Stable diverticulosis of the sigmoid colon without inflammatory changes. Electronically signed by: Titus Berry MD 09/12/2017 1:27 AM EDT
[2017-09-12] MEDS ORDERED: POTASSIUM CHLORIDE 20 MEQ CONTROLLED RELEASE TAB PO ONE (01:30)
[2017-09-12] MEDS ORDERED: PROM2SUP RECTAL (01:53)
[2017-09-12] MEDS ORDERED: LEVS0.124 SL (01:53)
--- NOTE | 2017-09-12 09:37 | EKG ---
Date Performed: 09/11/2017 Time Performed: 23:29:20 PTAGE: 61 years EKG: Sinus rhythm POSSIBLE LEFT ATRIAL ENLARGEMENT SEPTAL MYOCARDIAL INFARCTION ABNORMAL ECG PREVIOUS TRACING : 02/28/2017 19.32 Since the previous tracing, no significant change noted DOCTOR: Saud Miguel Interpretating Date/Time 09/12/2017 09:36:06
== END 2017-09-12 02:22 | disposition home or self-care (01) ==
LOC: NEPC 22:46
DX: R10.84 Generalized abdominal pain (principal); R11.2 Nausea with vomiting, unspecified; R63.4 Abnormal weight loss; R94.31 Abnormal electrocardiogram [ECG] [EKG]; K59.00 Constipation, unspecified; I10 Essential (primary) hypertension; J44.9 Chronic obstructive pulmonary disease, unspecified; E03.9 Hypothyroidism, unspecified; K21.9 Gastro-esophageal reflux disease without esophagitis
CPT/HCPCS: 71045; 74177; 80053; 81001; 82550; 83605; 83690; 84484; 85025; 85610; 85730; 93005; 96361; 96374; 99285; J0780; J7030; Q9967